=== PATIENT | female | born 1985 | race Caucasian/White ===

== ENCOUNTER 2021-07-02 12:06 | Emergency (ER) | payer OTHER, SELFPAY ==
[2021-07-02 12:16] VITALS: BP 137/89; PULSE 88; RESP 18; TEMP 36.8; O2SAT 98; BMI 25.3
--- NOTE | 2021-07-02 12:24 | ED.ABDPAIN ---
HPI - Abdominal Pain General Chief Complaint: Abdominal Pain Stated Complaint: abd pain, covid + Time Seen by Provider: 07/02/21 12:08 History of Present Illness HPI narrative: Patient presents to ED for menstrual cramps/lower abdominal pain. Patient denies any nausea, vomiting, flank pain, fever, or chills. Patient denies any recent trauma to the abdomen. Patient is also COVID positive. Patient denies any chest pain or shortness of breath. MD elicited complaint: abdominal pain Related Data Previous Rx's Medication Instructions Recorded naproxen 500 mg tablet 500 mg PO BID PRN #20 tab 07/02/21 nitrofurantoin 100 mg PO Q12H 7 Days #14 cap 07/02/21 monohydrate/macrocrystals 100 mg capsule (Macrobid) Allergies Allergy/AdvReac Type Severity Reaction Status Date / Time No Known Allergies Allergy Unverified 07/02/20 16:57 Review of Systems Review of Systems Yes all other systems are reviewed and are negative Constitutional: Reports as per HPI and Reports no additional constitutional complaints Eyes: Reports as per HPI and Reports no additional eye complaints Reports system reviewed and no additional complaints, except as documented and Reports as per HPI Cardiovascular: Reports as per HPI and Reports no additional cardiovascular complaints Respiratory: Reports as per HPI and Reports no additional respiratory complaints Gastrointestinal: Reports as per HPI, Reports no additional gastrointestinal complaints and Reports GI cramping Genitourinary: Reports no additional female genitourinary complaints and Reports as per HPI Comments: Vaginal bleeding menstrual cramps Musculoskeletal: Reports no additional musculoskeletal complaints and Reports as per HPI Reports system reviewed and no additional complaints, except as documented and Reports as per HPI Psychiatric: Reports no additional psychiatric complaints and Reports as per HPI Physical Exam Vital Signs: Vital Signs: Last Vital Signs Temp 98.3 F 07/02/21 14:59 Pulse 72 07/02/21 14:59 Resp 16 07/02/21 14:59 BP 116/74 07/02/21 14:59 Pulse Ox 99 07/02/21 14:59 Body Mass Index 25.3 Const: General: cooperative, healthy appearing, comfortable, no acute distress, well developed, alert, awake and Physically active Orientation/consciousness: patient oriented x3 HENMT: Head: Yes normal to inspection, Yes No palpable skull fracture present, Yes normocephalic, Yes atraumatic and No abrasion Eyes: General: appearance normal, both eyes and all related structures Neck: Neck: Yes normal visual inspection, Yes full ROM, Yes no lymphadenopathy, Yes no meningeal signs, Yes trachea midline, Yes supple and No tender Chest: Chest palpation & inspection: normal inspection of the chest and normal palpation of entire chest wall Resp: Effort & Inspection: normal respiratory effort and able to speak in complete sentences Cardio: Jugular venous distension: no JVD Heart sounds: S1 normal heart sound present and S2 normal heart sound present GI: Inspection: Yes normal to inspection and No abdominal wall ecchymosis Palpation (GI): Soft to palpation, not firm, Tenderness to palpation present (GI) suprapubicly, no guarding and not rigid : General: No CVA tenderness and Yes no CVA tenderness Back/Spine/Pelvis: Back: no CVA tenderness, No CVA tenderness and No back tenderness Skin: General skin exam: no rashes or lesions noted and elasticity normal Neuro: General: patient oriented x3, gait normal, no meningeal signs and CN's II-XI intact bilaterally Cranial nerves: Yes CN's II-XII intact bilaterally Extrem: General: Yes normal to inspection and Yes full ROM Psych: Appearance: grossly normal, well kempt and not disheveled Course Course Course Narrative: Patient have urine ordered to rule out infection and . Patient likely will be ordered. Reevaluation(s) Reevaluation #1: Patient has negative . UA shows UTI. Patient given Motrin for pain. Patient will be discharged with antibiotics and pain meds Time: 15:06 MDM - Abdominal Pain MDM Narrative Medical decision making narrative: UTI. Menstrual cramps Lab Data Result diagrams: 07/02/21 13:47 07/02/21 13:47 Labs: Lab Results 07/02/21 07/02/21 07/02/21 Range/Units 13:11 13:11 13:47 WBC 11.4 H (4.8-10.8) X10*3/uL RBC 4.75 (4.20-5.50) X10*6/uL Hgb 12.1 (12.0-16.0) g/dl Hct 38.4 (37-47) % MCV 80.8 (80-98) fL MCH 25.5 L (27.0-33.0) pg MCHC 31.5 (31.0-35.0) g/dl RDW 16.1 H (11.0-16.0) % Plt Count 261 (160-400) X10*3/uL MPV 11.1 (9.4-12.3) fL Immature Gran % (Auto) 0.4 (0.0-0.4) % Neut % (Auto) 82.4 H (45-73) % Lymph % (Auto) 12.2 L (20-40) % [place] % (Auto) 4.3 (2-11) % Eos % (Auto) 0.4 (0-4) % Baso % (Auto) 0.3 (0-2) % Lymph # (Auto) 1.4 (1.2-4.9) X10*3/uL [place] # (Auto) 0.5 (0.1-1.2) X10*3/uL Eos # (Auto) 0.0 (0.0-0.4) X10*3/uL Baso # (Auto) 0.0 (0.0-0.2) X10*3/uL Abs Immat Gran (auto) 0.04 H (0.00-0.03) X10*3/uL Absolute Neuts (auto) 9.4 H (2.0-8.3) X10*3/uL Absolute Nucleated RBC 0.000 (0.0-0.012) X10*3/uL Nucleated RBC % (auto) 0.0 (0.0-0.2) /100WBC PT (9.9-13.0) SEC INR (0.9-1.1) APTT (24.1-38.0) SEC Sodium (135-145) mmol/L Potassium (3.3-5.1) mmol/L Chloride (96-108) mmol/L Carbon Dioxide (22-29) mmol/L Anion Gap (12-20) BUN (9-16) mg/dL Creatinine (0.5-1.4) mg/dL Estim Creat Clear Calc Estimated GFR Random Glucose (60-115) mg/dL Calcium (8.4-10.2) mg/dL Total Bilirubin (0.0-1.0) mg/dL AST (5-31) U/L ALT (0-31) U/L Alkaline Phosphatase (39-117) U/L Total Protein (6.5-8.0) g/dL Albumin (3.5-5.0) g/dL Urine Color RED Urine Appearance CLOUDY Urine pH 5.0 (5.0-8.0) Ur Specific [place] >= 1.030 H (1.005-1.025) Urine Protein 2+ H (NEG-TRACE) MG/DL Urine Glucose (UA) NEG (NEG) MG/DL Urine Ketones NEG (NEG) MG/DL Urine Blood 3+ H (NEG) Urine Nitrite POS H (NEG) Ur Leukocyte Esterase TRACE H (NEG) Urine RBC 76-150 H (0) /HPF Urine WBC 0-2 (0-4) /HPF Ur Squamous Epith Cells TRACE /LPF Urine Bacteria TRACE /LPF Urine Test NEGATIVE (NEGATIVE) 07/02/21 07/02/21 Range/Units 13:47 13:47 WBC (4.8-10.8) X10*3/uL RBC (4.20-5.50) X10*6/uL Hgb (12.0-16.0) g/dl Hct (37-47) % MCV (80-98) fL MCH (27.0-33.0) pg MCHC (31.0-35.0) g/dl RDW (11.0-16.0) % Plt Count (160-400) X10*3/uL MPV (9.4-12.3) fL Immature Gran % (Auto) (0.0-0.4) % Neut % (Auto) (45-73) % Lymph % (Auto) (20-40) % [place] % (Auto) (2-11) % Eos % (Auto) (0-4) % Baso % (Auto) (0-2) % Lymph # (Auto) (1.2-4.9) X10*3/uL [place] # (Auto) (0.1-1.2) X10*3/uL Eos # (Auto) (0.0-0.4) X10*3/uL Baso # (Auto) (0.0-0.2) X10*3/uL Abs Immat Gran (auto) (0.00-0.03) X10*3/uL Absolute Neuts (auto) (2.0-8.3) X10*3/uL Absolute Nucleated RBC (0.0-0.012) X10*3/uL Nucleated RBC % (auto) (0.0-0.2) /100WBC PT 13.0 (9.9-13.0) SEC INR 1.1 (0.9-1.1) APTT 18.3 L (24.1-38.0) SEC Sodium 137 (135-145) mmol/L Potassium 4.5 (3.3-5.1) mmol/L Chloride 106 (96-108) mmol/L Carbon Dioxide 24 (22-29) mmol/L Anion Gap 12 (12-20) BUN 8 L (9-16) mg/dL Creatinine 0.83 (0.5-1.4) mg/dL Estim Creat Clear Calc 79.8 Estimated GFR > 60 Random Glucose 85 (60-115) mg/dL Calcium 9.1 (8.4-10.2) mg/dL Total Bilirubin 0.5 (0.0-1.0) mg/dL AST 15 (5-31) U/L ALT 11 (0-31) U/L Alkaline Phosphatase 41 (39-117) U/L Total Protein 6.9 (6.5-8.0) g/dL Albumin 4.0 (3.5-5.0) g/dL Urine Color Urine Appearance Urine pH (5.0-8.0) Ur Specific [place] (1.005-1.025) Urine Protein (NEG-TRACE) MG/DL Urine Glucose (UA) (NEG) MG/DL Urine Ketones (NEG) MG/DL Urine Blood (NEG) Urine Nitrite (NEG) Ur Leukocyte Esterase (NEG) Urine RBC (0) /HPF Urine WBC (0-4) /HPF Ur Squamous Epith Cells /LPF Urine Bacteria /LPF Urine Test (NEGATIVE) Discharge Plan Discharge Clinical Impression: UTI (urinary tract infection), Menstrual cramps Patient Disposition: Home, Self-Care Instructions: Dysmenorrhea (ED), Urinary Tract Infection in Women (ED) Additional Instructions: Return to the ED for any worsening abdominal pain, flank pain, fever, chills, nausea, vomiting, any other concerning symptoms. Please continue COVID quarantine. He will be discharged with antibiotics for urinary tract infection. Please follow-up with primary care provider. Prescriptions: New naproxen 500 mg tablet 500 mg PO BID PRN (Reason: pain) Qty: 20 RF: 0 nitrofurantoin monohyd/m-cryst [Macrobid] 100 mg capsule 100 mg PO Q12H 7 Days Qty: 14 RF: 0 Interventions: ED Discharge Assessment Last Done: 07/02/21 18:00 Discharge Date/Time: 07/02/21 18:00 Print Language: Kiswahili COUNTS INCLUDE 234 BEDS AT THE [facility] Past Medical History Medical History (Updated 07/02/21 @ 15:11 by REYES Ochoa) COVID-19 Social History Social History Advance Directives: No Patient : No
[2021-07-02 13:26] LABS: Appearance Urine CLOUDY; Color Urine RED; Glucose Urine UA NEG (NEG); Leukocyte Esterase Urine TRACE (NEG); Nitrite Urine POS (NEG); Specific Gravity - Urine >= 1.030 (1.005-1.025); UACC Culture Trigger YES; Urine Blood 3+ (NEG); Urine Ketones NEG (NEG); Urine Protein 2+ MG/DL (NEG-TRACE)
[2021-07-02 13:30] LABS: UPreg QC Valid YES; Urine Pregnancy NEGATIVE (NEGATIVE)
[2021-07-02 13:37] LABS: Bacteria Urine TRACE /LPF; Squamous Epithelial Cell Urine TRACE /LPF; WBC Urine 0-2 /HPF (0-4)
[2021-07-02 13:56] LABS: MANUAL DIFF FLAG NO
[2021-07-02 14:00] LABS: Basophils Percent Auto 0.3 % (0-2); Eosinophils Percent Auto 0.4 % (0-4); Hematocrit 38.4 % (37-47); Hemoglobin 12.1 g/dl (12.0-16.0); Imm Gran Abs Auto 0.04 X10*3/uL (0.00-0.03); Imm Gran Pct Auto 0.4 % (0.0-0.4); Lymphocytes Absolute Auto 1.4 X10*3/uL (1.2-4.9); Lymphocytes Percent Auto 12.2 % (20-40); Mean Corpuscular HGB Conc 31.5 g/dl (31.0-35.0); Mean Corpuscular Hemoglobin 25.5 pg (27.0-33.0); Mean Corpuscular Volume 80.8 fL (80-98); Mean Platelet Volume 11.1 fL (9.4-12.3); Monocytes Absolute Auto 0.5 X10*3/uL (0.1-1.2); Monocytes Percent Auto 4.3 % (2-11); Neutrophils Absolute Auto 9.4 X10*3/uL (2.0-8.3); Neutrophils Percent Auto 82.4 % (45-73); Platelet Count 261 X10*3/uL (160-400); Red Blood Count 4.75 X10*6/uL (4.20-5.50); Red Cell Distribution Width 16.1 % (11.0-16.0); White Blood Count 11.4 X10*3/uL (4.8-10.8)
[2021-07-02 14:20] LABS: Alanine Aminotransferase 11 U/L (0-31); Alkaline Phosphatase 41 U/L (39-117); Anion Gap 12 (12-20); Aspartate Amino Transferase 15 U/L (5-31); Bilirubin Total 0.5 mg/dL (0.0-1.0); Blood Urea Nitrogen 8 mg/dL (9-16); Calcium 9.1 mg/dL (8.4-10.2); Carbon Dioxide 24 mmol/L (22-29); Chloride 106 mmol/L (96-108); Creatinine Clr Calc Pharmacy 79.8; Estimated Glomerular Filt Rate > 60; Glucose Random 85 mg/dL (60-115); Potassium 4.5 mmol/L (3.3-5.1); Sodium 137 mmol/L (135-145); Total Protein 6.9 g/dL (6.5-8.0)
[2021-07-02 14:41] LABS: INTERNATIONAL NORM RATIO 1.1 (0.9-1.1)
[2021-07-02 14:48] LABS: Partial Thromboplastin Time 18.3 SEC (24.1-38.0)
[2021-07-02] MEDS: Ibuprofen 800 MG TABLET PO (14:58)
[2021-07-02 14:59] VITALS: BP 116/74; PULSE 72; RESP 16; TEMP 36.8; O2SAT 99
== END 2021-07-02 18:00 | disposition home or self-care (01) ==
PROVIDERS: Physician Assistant; Emergency Provider Emergency Medicine
DX: N39.0 Urinary tract infection, site not specified (principal); R25.2 Cramp and spasm; Z79.899 Other long term (current) drug therapy
CPT/HCPCS: 36415; 80053; 81001; 81025; 85025; 85610; 85730; 87086; 99283; 99284

== ENCOUNTER 2023-07-15 21:17 | Emergency (ER) | payer MEDICAID, SELFPAY ==
--- NOTE | 2023-07-15 | ECG_ITS ---
Test Reason : VOMITING Blood Pressure : / mmHG Vent. Rate : 119 BPM Atrial Rate : 119 BPM P-R Int : 122 ms QRS Dur : 074 ms QT Int : 306 ms P-R-T Axes : 054 057 -13 degrees QTc Int : 430 ms Sinus tachycardia T wave abnormality, consider inferior ischemia Abnormal ECG When compared with ECG of 24-OCT-2009 01:58, T wave inversion more evident in Inferior leads Heart rate has increased Referred By: Generic ED Physician Electronically Signed By:SAULO HERNANDEZ
[2023-07-15 21:31] VITALS: BP 115/83; PULSE 113; RESP 17; TEMP 37.8; O2SAT 96; BMI 28.4
[2023-07-15 22:45] LABS: COVID-19 Test Negative (Negative); IDNOW Serial# BCCEAD1C
[2023-07-15 22:46] LABS: IDNOW Serial# 08D9AD1C; Influenza A Positive (Negative); Influenza B2 Negative (Negative)
[2023-07-15] MEDS: Ibuprofen 400 MG TABLET PO (23:41)
[2023-07-15] MEDS: Ondansetron ODT 4 MG TAB.RAPDIS TRANSLINGU (23:42)
[2023-07-15] MEDS: Acetaminophen 325 MG TABLET 975 MG PO (23:42)
[2023-07-15 23:43] VITALS: BP 122/82; PULSE 104; RESP 18; TEMP 38.3; O2SAT 97
--- NOTE | 2023-07-16 00:42 | ED_ITS ---
HPI - General Adult General Chief complaint: General Medical Stated complaint: vomiting,headache Time Seen by Provider: 07/15/23 22:30 Source: patient Mode of arrival: ambulatory History of Present Illness HPI narrative: 38-year-old female without significant past medical history is had symptoms since of sore throat, chills, body aches and then today began having difficulty keeping a food and water down. She reports a possible sick contact in her co-worker on Monday of last week. Related Data Previous Rx's Medication Instructions Recorded naproxen 500 mg tablet 500 mg PO BID PRN pain #20 tabs 07/02/21 nitrofurantoin 100 mg PO Q12H 7 days #14 caps 07/02/21 monohydrate/macrocrystals 100 mg capsule (Macrobid) ondansetron 4 mg disintegrating 4 mg PO Q8H PRN nausea and 07/16/23 tablet vomiting #10 tabs Allergies Allergy/AdvReac Type Severity Reaction Status Date / Time No Known Allergies Allergy Unverified 07/02/20 16:57 Review of Systems Review of Systems: Pertinent positives and negatives as stated in HPI [facility] Past Medical History Source: nursing notes reviewed Medical History COVID-19 Social History Social History Smoked in Last 30 Days: No Use of substances other than those prescribed or required for medical reasons: No Advance Directives: No Advance Directives Information Provided: Yes Patient : No Physical Exam ED Vital Signs: Vital Signs - 24 hr 07/15/23 21:31 07/15/23 23:43 Temperature 100.1 F 101 F H Pulse Rate 113 H 104 H Respiratory Rate 17 18 Blood Pressure 115/83 122/82 Pulse Oximetry 96 97 Oxygen Delivery Method Room Air Room Air BMI result Body Mass Index 28.4 VITAL SIGNS: Reviewed. GENERAL: Well developed, well nourished, in no acute distress. HEAD: Normocephalic/atraumatic EYES: PERRLA, EOMI EARS: Ext canals without abnormality, TMs non-bulging and non-erythematous NOSE: Nares patent bilateral OROPHARYNX: no oral lesions noted, posterior pharynx clear and non-erythematous without noted tonsillar enlargement/erythema/exudates NECK: Supple, no adenopathy LUNGS: Normal breath sounds. No adventitious sounds or accessory muscle use. SpO2<97> CARDIOVASCULAR: Regular rate and rhythm without noted murmurs ABDOMEN: Soft, non-tender, non-distended with bowel sounds. MUSCULOSKELETAL: No tenderness, deformities, or effusions noted on gross inspection. EXTREMITIES: No cyanosis, clubbing or edema. SKIN: Inspection of the skin reveals no rashes, diaphoresis, tactile fever NEUROLOGIC: Alert and oriented x 4. Strength and sensation to light touch were grossly intact x 4. Medications Administered Discontinued Medications Generic Name Dose Route Start Last Admin Trade Name Freq PRN Reason Stop Dose Admin Acetaminophen 975 mg 07/15/23 23:27 07/15/23 23:42 Acetaminophen 325 Mg Tablet PO 07/15/23 23:28 975 mg ONCE ONE Administration Sodium Chloride 1,000 mls @ 999 mls/hr 07/16/23 00:45 07/16/23 01:58 Ns IV 07/16/23 01:45 Infused .Q1H1M LONA Infusion Ibuprofen 400 mg 07/15/23 23:27 07/15/23 23:41 Ibuprofen 400 Mg Tablet PO 07/15/23 23:28 400 mg ONCE ONE Administration Ondansetron HCl 4 mg 07/15/23 23:27 07/15/23 23:42 Ondansetron Odt 4 Mg Tab.Rapdis TRANSLINGU 07/15/23 23:28 4 mg ONCE ONE Administration Medical Decision Making Medical Decision Making [facility] Narrative: 38-year-old female with history and clinical presentation, DDX: Viral syndrome, COVID, influenza, no clinical findings to suggest strep pharyngitis. I reviewed all investigations and viral testing is positive for influenza a, patient is outside the window to initiate Tamiflu. Patient was provided with combination antipyretics as well as antinausea medication. Although she was able tolerate a small amount of oral intake she will be given 1 L of IV fluids, re-evaluated and discharged. Patient is feeling much better after IV fluids and able to tolerate oral intake. She will be discharged on antinausea medication. Differential Diagnosis Differential Diagnoses: The differential diagnosis associated with the presentation includes Please see the discussion above Admission/Observation Consideration of admission/observation: Escalation of care including admission/observation considered Please see the discussion above Lab Data [facility] Lab Attestation statement: I reviewed the patient's lab results. Please see the discussion above Labs: Lab Results 07/15/23 07/15/23 Range/Units 22:25 22:26 COVID-19 (KEILY) Negative (Negative) COVID-19 Clin Com See Note Influenza Type A (MARKEL) Positive A (Negative) Influenza Type B (MARKEL) Negative (Negative) Influenza A & B Note See Note Discharge Plan Discharge Clinical Impression: Viral syndrome, Influenza A Patient Disposition: Home, Self-Care Instructions: Influenza (ED), Viral Syndrome (ED) Additional Instructions: 1. Use [id number] Tylenol/ibuprofen as needed for body aches, temperatures greater than 100.4. Continues stay well hydrated. 2. You have been given a prescription to control the nausea. Return to the ER for any worsening symptoms. Prescriptions: New ondansetron 4 mg tablet,disintegrating 4 mg PO Q8H PRN (Reason: nausea and vomiting) Qty: 10 0RF No Action naproxen 500 mg tablet 500 mg PO BID PRN (Reason: pain) Qty: 20 0RF nitrofurantoin monohyd/m-cryst [Macrobid] 100 mg capsule 100 mg PO Q12H 7 Days Qty: 14 0RF Rx Instructions: must administer with a meal/food Stand Alone Forms: Work/School Release
[2023-07-16] MEDS: 0.9 % Sodium Chloride 1,000 ML 999 ML IV (00:55)
--- NOTE | 2023-07-16 02:15 | PC.NURSE ---
pt tolerated po fluids. Dr. Cline
[2023-07-16 02:16] VITALS: TEMP 36.9
== END 2023-07-16 02:23 | disposition home or self-care (01) ==
PROVIDERS: Emergency Provider Student in an Organized Health Care Education/Training Program
DX: J10.1 Influenza due to other identified influenza virus with other respiratory manifestations (principal); Z20.822 Contact with and (suspected) exposure to COVID-19
CPT/HCPCS: 87502; 87635; 93005; 96360; 99284; 99285

== ENCOUNTER 2024-08-15 10:50 | Outpatient (AMB) | payer BC, SELFPAY ==
--- NOTE | 2024-08-14 18:01 | MHC.PC.OV ---
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 Intake Note: new patient to establish care Allergies No Known Allergies Allergy (Verified 08/15/24 11:16) Medication List - Last Reconciled 08/15/24 by KEMAR Jiang No Known Home Meds Tobacco use date assessed: 08/15/24 Dental Screening Dental Screen Date: 08/15/24 Did you have a dental visit in the last 12 months?: No Did you have a dental problem in the last 6 months where you did not have access to dental care?: No Was dental information given to patient?: Patient has dentist HPI HPI Comments History of Present Illness Details 39 y/o F with obesity Surgical hx: c section x 2, tubal ligation 2021 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 Has 3 children, 2 dtrs and 1 son . Health Maintenance Tdap 2021 @ [facility] Flu declined Pap Specialists: [facility] Here today to [facility]. No records, previous PCP at [facility]. Last visit years ago. Having palpitations that come and go, feels hard to breathe for a short time and then breathing and heart rate go back to normal. This started a few months ago. Last time if happened was while driving here. Denies any stimulant use. + caffeine coffee and coke zero. Denies energy drinks, anxiety. Dad has some cardiac condition, unsure. Chronic constipation. Was using senna but this did not help. Then tried miralax but this did not work. Has never seen GI. Right ear feels plugged, described as feeling like she is underwater. Exam: Awake alert NAD Cerumen bilat EAC, s/p lavage TM intact and clear Thyroid nonpalp RRR LS CTAB Abd soft, nontender, normoactive BS x 4 Mood and affect appropriate Plan Successful ear lavage today bilateral EKG performed and within normal limits Check routine screening labs today along with some labs to see if there is any cause for the palpitations that she was experiencing. If labs within normal limits could consider a Holter monitor. Correlate labs with chronic constipation. Medication recommendations to be made at next office visit Return to office in 2 weeks to follow up on lab results This note is constructed using voice recognition software. While every effort has been made to ensure accuracy in bike technician, still errors may have been included Sometimes, these errors may affect the content or meaning of the given sentence . This note is constructed using voice recognition software. While every effort has been made to ensure accuracy in bike technician, still errors may have been included Sometimes, these errors may affect the content or meaning of the given sentence .45 PFSH Medical History (Updated 08/15/24 @ 11:29 by Sarah Rocha, [facility]) No pertinent past medical history COVID-19 Surgical History (Updated 08/15/24 @ 11:04 by Farhana South MA) H/O section Family History (Updated 08/15/24 @ 11:04 by Farhana South MA) Mother High cholesterol Diabetes Social History (Updated 08/15/24 @ 10:59 by Farhana South MA) Household Members: Spouse and Children Both parents involved: No Caregiver staying overnight: No Housing: Apartment Are you a primary respiratory care instructor to a significant other at home: Yes Do you presently have visiting nurse or other home services: No 75 years or older and lives alone: No Alcohol intake: current Alcohol intake frequency: a few times a month Patient Tobacco Use Status: Never used Tobacco e-Cigarette/Vaping Use: Never Used Second Hand Smoke Exposure: No service: No Current occupational status: employed 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 1. Little interest or pleasure in doing things: not at all 2. Feeling down, depressed, or hopeless: not at all 3. Trouble falling or staying asleep, or sleeping too much: not at all 4. Feeling tired or having little energy: not at all 5. Poor appetite or overeating: not at all 6. Feeling bad about yourself - or that you are a failure or have let yourself or your family down: not at all 7. Trouble concentrating on things, such as reading the newspaper or watching television: not at all 8. Moving or speaking so slowly that other people could have noticed. Or the opposite - being so fidgety or restless that you have been moving around a lot more than usual: not at all 9. Thoughts that you would be better off or of hurting yourself in some way: not at all Total score: 0 Depression Screening Interpretation: Negative Depression Screening Done: Yes 71052 - PHQ-9 Billing: Yes Source: Developed by Drs. Colin Perera, Peace Oleary, Major Farnsworth and colleagues, with an educational jean from [employer]. Thrive Questionnaire Date Thrive assessed: 08/15/24 I am a: Patient What is your living situation today?: I have a steady place to live Within the past 12 months, did the food you bought not last and you didn't have the money to get more?: Never true Within the past 12 months, did you worry whether your food would run out before you got money to buy more?: Never true Do you have trouble paying for medicines?: No Do you have trouble getting transportation to medical appointments?: No Do you have trouble paying your heating and electricity bill?: No Do you have trouble taking care of your child, family member or friend?: No Do you have trouble with day-to-day activities such as bathing, preparing meals, shopping, managing finances, etc.?: No Are you currently unemployed and looking for a job?: No Are you interested in more education?: No Please select the resources that you would like help with: None Currently or been in a relationship where the following occur: No concerns reported THRIVE Score: 0 AUDIT C Alcohol Use Questionnaire (AUDIT-C) 1. How often do you have a drink containing alcohol?: 2-4 times a month 2. How many drinks containing alcohol do you have on a typical day when you are drinking?: 1 or 2 3. How often do you have six or more drinks on one occasion?: Never Total Score: 2 Score Reviewed/Action Taken: Yes SWEAT-7 AMB Questionnaire SWETA-7 Date SWETA - 7 assessed: 08/15/24 Feeling nervous, anxious, or on edge: 0 = Not at all Not being able to stop or control worryin = Not at all Worrying too much about different things: 0 = Not at all Trouble relaxin = Not at all Being so restless that it is hard to sit still: 0 = Not at all Becoming easily annoyed or irritable: 0 = Not at all Feeling afraid as if something awful might happen: 0 = Not at all Total SWETA-7 score (0-4 normal; 5-9 mild; 10-14 moderate; 15-21 severe): 0 Source: Developed by Drs. Colin Perera, Peace Oleary, Major Farnsworth and colleagues, with an educational jean from [employer]. SWETA-7 Assessment Billing SWETA-7 Assessment Tool: SWETA-7 Assessment 68452 Physical exam (Primary Care) Vital Signs: Last Vital Signs Pulse 80 08/15/24 10:56 Resp 12 08/15/24 10:56 BP 120/70 08/15/24 10:56 Pulse Ox 99 08/15/24 10:56 Oxygen Delivery Method Room Air 08/15/24 10:56 BMI result Body Mass Index 30.6 BMI Assessment/Plan discussion: High BMI High, discussed plan: lifestyle Tobacco/Smoking Status: Tobacco use Status Tobacco use date assessed 08/15/24 08/15/24 11:00 Patient Tobacco Use Status Never used Tobacco 08/15/24 11:00 e-Cigarette/Vaping Use Never Used 08/15/24 11:00 PHQ-9: PHQ-9 Score PHQ-9: Total score 0 08/15/24 11:24 Depression Screening Interpretation: Negative Thrive Assessment: Date of Thrive Assessment Date Thrive assessed 08/15/24 08/15/24 11:00 Currently or been in a relationship where the following occur: No concerns reported Office Procedures EKG 56161-Svksgpieaeoglsoeo, Complete Cerumen Removal From which ear canal was the cerumen removed: bilateral Removal: irrigation Notes: patient tolerated procedure well, no complications and ear canal clear 20242-Aso Irrigation/Lavage Coding Level of Care Code New Pt Level 4 (35942) Complex EM visit Add On G2211 Diagnoses Palpitations R00.2 Chronic constipation K59.09 BMI 30.0-30.9,adult Z68.30 Obesity, Class I, BMI 30.0-34.9 (see actual BMI) E66.811 Impacted cerumen of both ears H61.23 CPT Codes EKG - CPT: 63187-Nrfisztipsjjymhxv, Complete ([id number]) Office Procedure - CPT: 16201-Zxt Irrigation/Lavage ([id number]) Additional Codes SWETA-7 Assessment Billing - SWETA-7 Assessment Tool: SWETA-7 Assessment 52456 ([id number]) Assessment & Plan Assessment & Plan (1) Palpitations: Code(s): R00.2 - Palpitations Category: Medical Plan: . (2) Chronic constipation: Code(s): K59.09 - Other constipation Category: Medical Plan: . (3) BMI 30.0-30.9,adult: Code(s): Z68.30 - Body mass index [BMI] 30.0-30.9, adult Category: Medical Plan: . (4) Obesity, Class I, BMI 30.0-34.9 (see actual BMI): Code(s): E66.811 - Obesity, class 1 Category: Medical Plan: . (5) Impacted cerumen of both ears: Code(s): H61.23 - Impacted cerumen, bilateral Plan: . Plan . Orders: Orders Lipid Panel Today K59.09 - Other constipation, R00.2 - Palpitations Microalbumin, Random (w Creat) Today K59.09 - Other constipation, R00.2 - Palpitations Vitamin B12 and Folate Today K59.09 - Other constipation, R00.2 - Palpitations Phosphorus Today K59.09 - Other constipation, R00.2 - Palpitations Complete Blood Count no Diff Today K59.09 - Other constipation, R00.2 - Palpitations Comprehensive Met. Panel Today K59.09 - Other constipation, R00.2 - Palpitations Hemoglobin A1c Today K59.09 - Other constipation, R00.2 - Palpitations TSH reflex Free T4 Today K59.09 - Other constipation, R00.2 - Palpitations Magnesium Today K59.09 - Other constipation, R00.2 - Palpitations AMB EKG-In Office Today R00.2 - Palpitations, Z13.6 - Encounter for screening for cardiovascular disorders Medications: Discontinued naproxen Discontinued Reason: Patient no longer taking 500 mg PO BID PRN 20 tabs 0RF pain nitrofurantoin monohyd/m-cryst 100 mg (Macrobid) must administer with a meal/food Discontinued Reason: Patient no longer taking 100 mg PO Q12H 7 days 14 caps 0RF ondansetron Discontinued Reason: Patient no longer taking 4 mg PO Q8H PRN 10 tabs 0RF nausea and vomiting Patient Instructions: Walk-In Care (Urgent Care): We Make it Easy Walk-in for urgent medical issues such as: ? Seasonal Allergies ? Insect Bites ? Cough ? Diarrhea ? Acute Asthma Attacks ? Back, Knee or Joint Pain ? Ear Infection ? Fever without a Rash ? Headaches ? Nausea ? Rena Lara Eye, Rash or Skin Irritation ? Sore Throat ? Sports Physicals ? Vomiting Most insurances are accepted. Patients do not need to be part of the [facility] to seek care at the walk-in clinic. Locations [address] [facility] , [place] [address] ? [phone] [facility] Walk-In Care in [place] provides services to ages 18 and over. Open Monday-Monday: 8 a.m. to 5 p.m. and Monday: 9 a.m. to 3 p.m.* *Hours may vary due to staffing availability. To confirm Walk-In Care hours in [place], please call [phone]. [address] [place] [address] ? [phone] [facility] Walk-In Care in [place] provides services to ages 12 and over. Open Monday-Monday: 8 a.m. to 5 p.m. Hours may vary due to staffing availability. To confirm Walk-In Care hours in [place], please call [phone]. LABORATORY SERVICES: [facility] ? Primary Location [address] [place] [address] Monday through Monday 6:00 AM ? 5:00 PM Monday 7:00 AM ? 11:00 AM* [phone] The [facility] is centrally located near the front entrance of the [facility] for easy outpatient access. Convenient parking is provided for outpatients. *Hours may vary due to staffing availability. To confirm Laboratory hours for any location, please call [phone]. Offsite Location For your convenience, we offer offsite laboratory draw stations at the following locations: [address] [place] [address] ? [facility] [address], [address] Monday through Monday 7:30 AM ? 1:00 PM* [phone] *Hours may vary due to staffing availability. To confirm Laboratory hours for any location, please call [phone]. [place] [address], [place] Monday through Monday 6:00 AM ? 3:30 PM* Monday 6:30 AM ? 3 PM* [phone] *Hours may vary due to staffing availability. To confirm Laboratory hours for any location, please call [phone]. [address] [facility] Monday through Monday 7:30 AM ? 4:00 PM* [phone] *Hours may vary due to staffing availability. To confirm Laboratory hours for any location, please call [phone]. [address] [facility] Monday through 9:00 AM ? 4:00 PM* *Hours may vary due to staffing availability. To confirm Laboratory hours for any location, please call [phone]. Appointments are not necessary. Walk-ins are welcome. Like all the departments throughout the [facility], our Lab undergoes frequent reviews to ensure the quality and accuracy of test results, and our staff takes special pride in its status as a nationally accredited facility. Patient Portal: ONE PATIENT. ONE RECORD. BETTER CARE. [facility] has a fully integrated, cutting-edge mobile electronic health information system that has revolutionized the way we care for our patients and manage our organization. This system improves communication and coordination enabling us to provide safe, higher-quality care, and an overall positive experience for staff and patients. Our first priority, as always, is to deliver the highest quality care possible. The system is running in the background supporting that priority. This portal is for all [facility] and [facility] services and practices. If you are experiencing any technical difficulties with enrolling or logging into the Patient Portal please complete the [facility] Patient Portal Technical Support Form. [facility] now offers a new secure on-line interactive tool for patients to review their health information ? ?Patient Portal. This interactive web portal will enable patients and their families to take an active role in their care by providing easy, secure access to their health information via the internet. The Patient Portal provides patients with instant access to their health information, including laboratory results, medications, allergies, demographic information, visit history, and more. In addition to managing their own care, parents and health care proxies with authorized consent will appreciate the ability to access the records of those individuals for whom they provide care. Please note: if you wish to gain access (Proxy) to another patient?s portal, you will be required to come to the Medical Records Department in person at [facility]. Both the patient giving proxy access and the proxy will need to provide photo identification and complete the appropriate authorization. The Patient Portal also allows track their appointments online. The [facility] Patient Portal also saves patients time by allowing them to submit updates to their demographic and contact information prior to their visits. Portal email notifications will also alert patients to any new activity on their portal, such as test results and new appointments. In order to initially enroll in the [facility] Patient Portal, you will need to enter some required information including the following: your [facility] Medical Record number your personal home email address name date of Please note: In order to enroll in the [facility] Patient Portal, we need to have your email address on file in your electronic medical record. ?The email address needs to be specific for one person (yourself) in order for your Portal enrollment to be successful. ?You can update your email address in person with our Registration staff when you are registering for a hospital visit. ?Otherwise, you will need to come to the Health Information Management (Medical Records) Department at [facility]. ?We are open from Monday ? Monday from 7:30 a.m. ? 4:30 p.m. ?You will be required to present a photo id. Once you have successfully enrolled in the Patient Portal, you will receive a one-time user id and password for the Portal, sent to your email address. ?This will allow you to log into the Patient Portal within 99 hrs and reset your own logon id and password, and define personal security questions. ?Once your permanent login and password have been set, you can log into the [facility] Patient Portal at any time via the blue button above or from the Portal Logon button on any page of the [facility] website. [facility] and [facility] encourage all of our patients to enroll in Patient Portal as it presents a valuable opportunity for patients and their families to actively participate in their care and stay healthy Welcome to [facility]. ?We look forward to working with you.
[2024-08-15 10:56] VITALS: BP 120/70; PULSE 80; RESP 12; O2SAT 99; BMI 30.6
== END 2024-08-15 12:12 | disposition home or self-care (01) ==
LOC: HO.HMCFM 10:51
PROVIDERS: PCP Nurse Practitioner Family; Visit Provider Nurse Practitioner Family
DX: R00.2 Palpitations (principal); K59.09 Other constipation; Z68.30 Body mass index [BMI] 30.0-30.9, adult; E66.811 Obesity, class 1; H61.23 Impacted cerumen, bilateral

== ENCOUNTER → 2024-08-15 10:50 | Outpatient (BNVA) | payer BC, SELFPAY | PROVIDERS: PCP Nurse Practitioner Family; Visit Provider Nurse Practitioner Family | DX: R00.2 Palpitations (principal); K59.09 Other constipation; E66.811 Obesity, class 1; Z68.30 Body mass index [BMI] 30.0-30.9, adult; H61.23 Impacted cerumen, bilateral | CPT/HCPCS: 69209; 93005; 96127 ==

== ENCOUNTER 2024-08-23 06:45 | Outpatient (REF) | payer BC, SELFPAY ==
[2024-08-23 07:38] LABS: Hematocrit 36.1 % (37.0-47.0); Hemoglobin 11.7 g/dl (12.0-16.0); Mean Corpuscular HGB Conc 32.4 g/dl (31.0-35.0); Mean Corpuscular Hemoglobin 27.3 pg (27.0-33.0); Mean Corpuscular Volume 84.1 fL (80.0-98.0); Mean Platelet Volume 10.9 fL (9.4-12.3); Platelet Count 247 X10*3/uL (160-400); Red Blood Count 4.29 X10*6/uL (4.20-5.50); Red Cell Distribution Width 15.1 % (11.0-16.0)
[2024-08-23 07:43] LABS: WBC ABN SCTR FOR CBC 1
[2024-08-23 07:50] LABS: Estimated Average Glucose 100 mg/dL; Hemoglobin A1C 100.7551 umol/L; Hemoglobin A1c % 5.1 % (<6.0); Total Hemoglobin (HGBA1C) 3119.3183 umol/L
[2024-08-23 08:04] LABS: Creatinine Urine 229.37 mg/dL; Microalbum/Creatinine Ratio Ur 6.5 ug/mg cr (<30)
[2024-08-23 08:10] LABS: White Blood Count 5.6 X10*3/uL (4.8-10.8)
[2024-08-23 08:15] LABS: Anion Gap 11 (12-20); Calcium 8.8 mg/dL (8.4-10.2); Chloride 112 mmol/L (96-108); Sodium 143 mmol/L (135-145)
[2024-08-23 08:19] LABS: Alanine Aminotransferase 13 U/L (0-31); Albumin Level 3.8 g/dL (3.5-5.0); Aspartate Amino Transferase 22 U/L (5-31); Bilirubin Total 0.3 mg/dL (0.0-1.0); Blood Urea Nitrogen 13 mg/dL (9-16); Carbon Dioxide 24 mmol/L (22-29); Cholesterol 127 mg/dL (<200); Estimated Glomerular Filt Rate > 60; Glucose Random 99 mg/dL (60-115); HDL Cholesterol 50 mg/dL (>40); LDL Cholesterol Calculated 68 mg/dL (<100); Phosphorus 2.8 mg/dL (2.7-4.5); Total Protein 6.6 g/dL (6.5-8.0); Triglycerides 49 mg/dL (<150)
[2024-08-23 08:36] LABS: Alkaline Phosphatase 45 U/L (39-117); TSH reflex Free T4 1.91 uIU/mL (0.32-4.0)
[2024-08-23 08:38] LABS: Folate 9.6 ng/mL (> or = 4.0); Vitamin B12 454 pg/mL (200-900)
== END 2024-08-23 06:46 | disposition home or self-care (01) ==
LOC: HO.LAB 06:45
PROVIDERS: PCP Nurse Practitioner Family; Visit Provider Nurse Practitioner Family
DX: R00.2 Palpitations (principal); K59.09 Other constipation; Z13.1 Encounter for screening for diabetes mellitus
CPT/HCPCS: 36415; 80053; 80061; 82043; 82570; 82607; 82746; 83036; 83735; 84100; 84443; 85027

== ENCOUNTER 2024-08-29 09:07 | Outpatient (AMB) | payer BC, SELFPAY ==
--- NOTE | 2024-08-29 09:08 | MHC.PC.OV ---
Vital Signs 08/29/24 09:12 Height 5 ft 1 in Weight 165 lb 4 oz BMI 31.2 BP 110/70 Blood Pressure Location Rt brachial Position Sitting Respiration 16 Pulse 89 Pulse Source Pulse Oximeter Temp 98.2 F Temp Source Oral Pulse Oximetry (%) 100 Oxygen Delivery Method Room Air Intake Visit Reasons: 2 weeks 30 min fu labs/palp/constipation Intake Note: patient here for 2 wks follow up on labs, palp, and constipation. Clerical Administrative Assistant Required: No Is last menstrual period known: Yes Last menstrual period: 08/13/24 Post menopausal: No Patient : No Allergies No Known Allergies Allergy (Verified 08/29/24 09:12) Medication List - Last Reconciled 08/29/24 by Sarah Rocha, MEHDI- multivitamin with iron 1 tab PO DAILY polyethylene glycol 3350 (Miralax) 17 grams PO DAILY Tobacco use date assessed: 08/29/24 Dental Screening Dental Screen Date: 08/29/24 Did you have a dental visit in the last 12 months?: No Did you have a dental problem in the last 6 months where you did not have access to dental care?: No Was dental information given to patient?: Patient has dentist HPI HPI Comments History of Present Illness Details 39 y/o F with obesity, chronic constipation, anemia, Surgical hx: c section x 2, tubal ligation 2021 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 Health Maintenance Tdap 2021 @ [facility] Flu declined Pap Specialists: MATERIALS [facility] PROCESSES MANAGER [facility] Here today to f/u on labs Labs from 08/23/2024 show mild anemia hemoglobin 11.7, hematocrit 36.1, normal electrolytes, normal renal function, hemoglobin A1c 5.1%, normal Mag, normal phos, normal liver enzymes, cholesterol profile is normal along with B12 and folate, normal TSH, normal urine microalbumin creatinine ratio Done to eval c/o palpitations that come and go, feels hard to breathe for a short time and then breathing and heart rate go back to normal. This started a few months ago. Last time if happened was while driving here. Denies any stimulant use. + caffeine coffee and coke zero. Denies energy drinks, anxiety. Dad has some cardiac condition, unsure. Chronic constipation. Was using senna but this did not help. Then tried miralax but this did not work. Has never seen GI. No changes in sx since I last saw her. Exam: Awake alert NAD Thyroid nonpalp RRR LS CTAB Abd soft, nontender, normoactive BS x 4 Mood and affect appropriate Plan Start multivitamin with iron, advised to take daily with food. If she develops any GI upset, advised to reduce to 3 times per week. Check Holter monitor to evaluate palpitations Start MiraLax to help with constipation. Titrate to effect. Hold for diarrhea. Return to the office in 6 weeks to follow up on the Holter monitor results along with constipation care plan. As always advised to follow up sooner if needed. This note is constructed using voice recognition software. While every effort has been made to ensure accuracy in plan examiner, still errors may have been included Sometimes, these errors may affect the content or meaning of the given sentence . Total time spent caring for the patient today was 22 minutes. This includes time spent before the visit reviewing the chart, time spent during the visit, and time spent after the visit on documentation [facility] Medical History (Updated 08/26/24 @ 08:21 by Sarah Rocha, [facility]) No pertinent past medical history COVID-19 Surgical History (Updated 08/15/24 @ 11:04 by Farhana South MA) H/O section Family History (Updated 08/15/24 @ 11:04 by Farhana South MA) Mother High cholesterol Diabetes Social History (Updated 08/15/24 @ 10:59 by Farhana South MA) Household Members: Spouse and Children Both parents involved: No Caregiver staying overnight: No Housing: Apartment Are you a primary career consultant to a significant other at home: Yes Do you presently have visiting nurse or other home services: No 75 years or older and lives alone: No Alcohol intake: current Alcohol intake frequency: a few times a month Patient Tobacco Use Status: Never used Tobacco e-Cigarette/Vaping Use: Never Used Second Hand Smoke Exposure: No Patient : No service: No Current occupational status: employed 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 [employer] Cognitive needs: No Hearing needs: No Vision needs: Yes (wear glasses) Female Reproductive History Menstrual Date of last menstrual period: 08/13/24 Questionnaire Thrive Questionnaire Date Thrive assessed: 08/08/24 I am a: Patient What is your living situation today?: I have a steady place to live Within the past 12 months, did the food you bought not last and you didn't have the money to get more?: Never true Within the past 12 months, did you worry whether your food would run out before you got money to buy more?: Never true Do you have trouble paying for medicines?: No Do you have trouble getting transportation to medical appointments?: No Do you have trouble paying your heating and electricity bill?: No Do you have trouble taking care of your child, family member or friend?: No Do you have trouble with day-to-day activities such as bathing, preparing meals, shopping, managing finances, etc.?: No Are you currently unemployed and looking for a job?: No Are you interested in more education?: No Please select the resources that you would like help with: None Currently or been in a relationship where the following occur: No concerns reported THRIVE Score: 0 SWETA-7 AMB Questionnaire SWETA-7 Date SWETA - 7 assessed: 08/15/24 Source: Developed by Drs. Colin Perera, Peace Oleary, Major Farnsworth and colleagues, with an educational jean from [employer] Physical exam (Primary Care) Vital Signs: Last Vital Signs Temp 98.2 F 08/29/24 09:12 Pulse 89 08/29/24 09:12 Resp 16 08/29/24 09:12 BP 110/70 08/29/24 09:12 Pulse Ox 100 08/29/24 09:12 Oxygen Delivery Method Room Air 08/29/24 09:12 BMI result Body Mass Index 31.2 Tobacco/Smoking Status: Tobacco use Status Tobacco use date assessed 08/29/24 08/29/24 09:15 Patient Tobacco Use Status Never used Tobacco 08/29/24 09:15 e-Cigarette/Vaping Use Never Used 08/29/24 09:15 Thrive Assessment: Date of Thrive Assessment Date Thrive assessed 08/08/24 08/29/24 09:15 Currently or been in a relationship where the following occur: No concerns reported Coding Level of Care Code Est Pt Level 3 (44812) Complex EM visit Add On G2211 Diagnoses Mild anemia D64.9 Chronic constipation K59.09 Palpitations R00.2 Assessment & Plan Assessment & Plan (1) Mild anemia: Code(s): D64.9 - Anemia, unspecified Category: Medical Plan: . (2) Chronic constipation: Code(s): K59.09 - Other constipation Category: Medical Plan: . (3) Palpitations: Code(s): R00.2 - Palpitations Category: Medical Plan: . Plan . Orders: Orders ECG 3 day holter monitor Today R00.2 - Palpitations Medications: New multivitamin with iron 1 tab PO DAILY 90 tabs 2RF polyethylene glycol 3350 (Miralax) titrate to effect, hold for diarrhea; Take at bedtime in at least 8 oz of fluid. 17 grams PO DAILY 510 grams 7RF
[2024-08-29 09:12] VITALS: BP 110/70; PULSE 89; RESP 16; TEMP 36.8; O2SAT 100; BMI 31.2
== END 2024-08-29 09:47 | disposition home or self-care (01) ==
PROVIDERS: PCP Nurse Practitioner Family; Visit Provider Nurse Practitioner Family
DX: D64.9 Anemia, unspecified (principal); K59.09 Other constipation; R00.2 Palpitations

== ENCOUNTER → 2024-09-16 08:28 | Outpatient (REF) | payer BC, SELFPAY | LOC: HO.CARD 08:28 | PROVIDERS: PCP Nurse Practitioner Family; Visit Provider Nurse Practitioner Family | DX: R00.2 Palpitations (principal) | CPT/HCPCS: 93242 ==

== ENCOUNTER → 2024-09-16 08:30 | Outpatient (BNV) | payer BC, SELFPAY | PROVIDERS: PCP Nurse Practitioner Family; Visit Provider Internal Medicine | DX: I47.10 Supraventricular tachycardia, unspecified (principal) | CPT/HCPCS: 93244 ==

== ENCOUNTER 2024-10-15 08:57 | Outpatient (AMB) | payer BC, SELFPAY ==
[2024-10-15 09:00] VITALS: BP 116/72; PULSE 72; O2SAT 98; BMI 31.4
--- NOTE | 2024-10-15 09:00 | MHC.PC.OV ---
Vital Signs 10/15/24 09:00 Height 5 ft 1 in Weight 166 lb BMI 31.4 BP 116/72 Blood Pressure Location Lt brachial Position Sitting Pulse 72 Pulse Source Pulse Oximeter Pulse Oximetry (%) 98 Intake Visit Reasons: 6 weeks fu holter monitor and constipation 15 min Intake Note: pt is here for 6 week f/up, results from holter monitor, and hx of constipation and states mirlax has helped Privacy Officer Required: No Accompanied by: Self / Same As Patient Allergies No Known Allergies Allergy (Verified 10/15/24 09:23) Tobacco use date assessed: 08/29/24 Dental Screening Dental Screen Date: 08/29/24 HPI HPI Comments History of Present Illness Details 39 y/o F with obesity, chronic constipation, anemia, palpitations Surgical hx: c section x 2, tubal ligation 2021 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 Has 3 children, 2 dtrs and 1 son . Health Maintenance Tdap 2021 @ [facility] Flu declined Pap Specialists: TREATER Optho The patient is a 39-year-old female presenting for f/u on palpitations. The palpitations have been concerning for rapid episodes, and a Holter monitor was initiated to capture these events. The Holter monitor results indicated infrequent episodes of supraventricular tachycardia (SVT), characterized by paired high heart rates or couplets. The episodes were recorded during times of rest, such as late at night and likely unrelated to physical exertion since they did not occur when the patient attended the gym around usual times in the evening. The underlying rhythm was sinus with occasional rare supraventricular and ventricular ectopy. The patient also reports constipation, which has been managed with miralax and the condition has slightly improved. Just started MVI with Iron this week. No GI upset. Review of Systems - Cardiovascular: Reports intermittent palpitations. - Gastrointestinal: Reports improvement in constipation with treatment. Exam: Awake alert NAD Thyroid nonpalp RRR LS CTAB Abd soft, nontender, normoactive BS x 4 Mood and affect appropriate Results Holter 09/16/24 -see below Plan - Referral to cardiology for further assessment and management of supraventricular tachycardia. - Advise to maintain a diary to track episodes of palpitations, including time, activity, and associated symptoms. - Continue with multivitamin containing iron and fiber supplementation for constipation management. Patient was informed and verbally consented to the use of an ambient scribe for clinic note documentation during this visit. Discussion Notes I discussed with the patient that the Holter monitor showed rare episodes of supraventricular tachycardia, with infrequent onset and without any concerning findings like blockages or heart stops. The rhythm was primarily sinus with occasional ectopy. I explained the possibility of consulting cardiology for further evaluation to understand the underlying cause of the palpitations, even though they are infrequent. The patient agreed to the referral to [facility]'s cardiology team for specialized input. There was an emphasis on the importance of documenting any future episodes of palpitations in a diary to help correlate them with specific activities or states of rest and potentially assist the motion picture critic. I also encouraged the continuation of the multivitamin with iron and advised on maintaining hydration to support digestive health. Patient Instructions - Follow up with the cardiology department at [facility] when contacted. - Keep a record of any palpitations and note any activities or symptoms. - Continue taking the multivitamin with iron and fiber powder. - Stay hydrated and monitor for exacerbation of constipation. - Contact us if you experience any new symptoms or worsening conditions. - RTO 3 months CPE, sooner PRN This note is constructed using voice recognition software. While every effort has been made to ensure accuracy in oakes machine operator, still errors may have been included Sometimes, these errors may affect the content or meaning of the given sentence . Total time spent caring for the patient today was 30 minutes. This includes time spent before the visit reviewing the chart, time spent during the visit, and time spent after the visit on documentation PFSH Medical History No pertinent past medical history COVID-19 Surgical History H/O section Family History Mother High cholesterol Diabetes Social History Household Members: Spouse and Children Both parents involved: No Caregiver staying overnight: No Housing: Apartment Are you a primary career and guidance counselor to a significant other at home: Yes Do you presently have visiting nurse or other home services: No 75 years or older and lives alone: No Alcohol intake: current Alcohol intake frequency: a few times a month Patient Tobacco Use Status: Never used Tobacco e-Cigarette/Vaping Use: Never Used Second Hand Smoke Exposure: No service: No Current occupational status: employed 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 [employer] Cognitive needs: No Hearing needs: No Vision needs: Yes (wear glasses) Questionnaire Thrive Questionnaire Date Thrive assessed: 10/15/24 I am a: Patient What is your living situation today?: I have a steady place to live Within the past 12 months, did the food you bought not last and you didn't have the money to get more?: Never true Within the past 12 months, did you worry whether your food would run out before you got money to buy more?: Never true Do you have trouble paying for medicines?: No Do you have trouble getting transportation to medical appointments?: No Do you have trouble paying your heating and electricity bill?: No Do you have trouble taking care of your child, family member or friend?: No Do you have trouble with day-to-day activities such as bathing, preparing meals, shopping, managing finances, etc.?: No Are you currently unemployed and looking for a job?: No Are you interested in more education?: No Please select the resources that you would like help with: None Currently or been in a relationship where the following occur: No concerns reported THRIVE Score: 0 SWETA-7 AMB Questionnaire SWETA-7 Date SWETA - 7 assessed: 08/15/24 Source: Developed by Drs. Colin Perera, Peace Oleary, Major Farnsworth and colleagues, with an educational jean from [employer]. Physical exam (Primary Care) Vital Signs: Last Vital Signs Pulse 72 10/15/24 09:00 BP 116/72 10/15/24 09:00 Pulse Ox 98 10/15/24 09:00 BMI result Body Mass Index 31.4 Tobacco/Smoking Status: Tobacco use Status Tobacco use date assessed 08/29/24 10/15/24 09:01 Patient Tobacco Use Status Never used Tobacco 10/15/24 09:01 e-Cigarette/Vaping Use Never Used 10/15/24 09:01 Thrive Assessment: Date of Thrive Assessment Date Thrive assessed 10/15/24 10/15/24 09:06 Currently or been in a relationship where the following occur: No concerns reported Results Reviewed Results Reviewed: [address] [address] Holter Monitor Report Signed Patient: Karuna Knutson MR#: [id number] : 1985 Acct:[id number] Age/Sex: 39 / F ADM Date: 09/16/24 Loc: [facility] Attending Dr: Sarah OQUENDO Ordering Physician: Sarah Rocha Date of Service: 09/16/24 Procedure(s): ECG 3 day holter monitor Accession Number(s): cc: Sarah Rocha~ Total monitoring time 3 days. Underlying rhythm is sinus with an average rate of 82/Min. Rare supraventricular and ventricular ectopy. No significant pauses or high-grade AV blocks. No patient markers or diary events. Dictated By: Mike Barragan MD Signed By: <Electronically signed by Mike Barragan MD> 09/30/24 1011 DD/ 0830 TD/TT: 09/29/24829 Irrigator Head: Coding Level of Care Code Est Pt Level 4 (70781) Complex EM visit Add On G2211 Diagnoses Palpitations R00.2 Paroxysmal SVT (supraventricular tachycardia) I47.10 Chronic constipation K59.09 Mild anemia D64.9 Assessment & Plan Assessment & Plan (1) Palpitations: Code(s): R00.2 - Palpitations Category: Medical (2) Paroxysmal SVT (supraventricular tachycardia): Code(s): I47.10 - Supraventricular tachycardia, unspecified Category: Medical (3) Chronic constipation: Code(s): K59.09 - Other constipation Category: Medical (4) Mild anemia: Code(s): D64.9 - Anemia, unspecified Category: Medical Plan ., Orders: Referrals Cardiology Referral I47.10 - Supraventricular tachycardia, unspecified, R00.2 - Palpitations
== END 2024-10-15 09:33 | disposition home or self-care (01) ==
PROVIDERS: PCP Nurse Practitioner Family; Visit Provider Nurse Practitioner Family
DX: R00.2 Palpitations (principal); I47.10 Supraventricular tachycardia, unspecified; K59.09 Other constipation; D64.9 Anemia, unspecified

== ENCOUNTER → 2024-10-15 08:57 | Outpatient (BNVA) | payer BC, SELFPAY | PROVIDERS: PCP Nurse Practitioner Family; Visit Provider Nurse Practitioner Family ==

== ENCOUNTER 2024-12-30 12:01 | Outpatient (AMB) | payer BC, SELFPAY ==
--- NOTE | 2024-12-30 12:09 | MHC.PC.OV ---
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: No Allergies No Known Allergies Allergy (Verified 12/30/24 12:31) Medication List - Last Reconciled 12/30/24 by MEHDI Jiang- multivitamin with iron 1 tab PO DAILY polyethylene glycol 3350 (Miralax) 17 grams PO DAILY Tobacco use date assessed: 12/30/24 Dental Screening Dental Screen Date: 12/30/24 Did you have a dental visit in the last 12 months?: Yes Did you have a dental problem in the last 6 months where you did not have access to dental care?: No Was dental information given to patient?: Patient has dentist HPI HPI Comments History of Present Illness Details 39 y/o F with obesity, chronic constipation, anemia, palpitations Surgical hx: c section x 2, tubal ligation 2021 Family hx: no changes Social: [employer] at [employer]. Has 3 children, 2 dtrs and 1 son . 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 - The patient's obesity is a chronic issue, with noted weight loss since the last visit. - Her chronic constipation was previously managed with MiraLAX; however, the symptoms have improved, and usage has ceased. - Cont to experience palpitations causing shortness of breath, with a pending cardiology evaluation. 01/2025 - Anemia was identified in a lab test last August; she continues multivitamin with iron supplementation. - Recent nausea and vomiting episodes were associated with food consumption, resolved upon rest started yesterday. - A new skin tag was reported on the body L side of neck. - Her last Pap smear was in 2022, and she plans to schedule an upcoming exam. - Declined flu vaccination. - Awaiting an eye exam, with a referral to [facility] in place. Review of Systems - Gastrointestinal: Denies changes in bowel movements; notes improvement in constipation - Cardiovascular: Reports palpitations causing shortness of breath - Neurological: Reports dizziness when changing positions - Integumentary: Notes presence of new skin tag Physical Exam General: Well developed, well nourished, in no acute distress. Appears stated age. Weight is down a bit, noted during the visit. Head: Normocephalic, atraumatic. Eyes: Pupils are equal, round and reactive to light and accommodation. Conjunctivae are clear. Vision grossly normal. Ears: TMs clear AU, EACS WNL Nose: Patent, without discharge. Neck: Supple, no adenopathy or thyromegaly. Breast: Edu on SBE. Patient advised on self-breast exams. Lungs: Clear to auscultation bilaterally. No rales, rhonchi or wheeze noted. Good air flow in all ortiz. Heart: Regular rate and rhythm. No murmurs, click, rubs or gallops are noted. Abdomen: Bowel sounds present in all quadrants. The abdomen is soft, nontender, with no masses or organomegaly noted. No hernias are noted. : Deferred. 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 Pulses: Peripheral pulses are equal and palpable bilaterally. Extremities: No clubbing, cyanosis nor edema is noted. Neurologic: Gait and station normal. Cranial Nerves 2-12 intact. Motor strength grossly symmetrical and intact. No sensory loss. Balance normal. Skin: No rashes, ulcers, or lesions noted. Turgor is good. Skin color is good. Hair and nails are without abnormalities. Noted skin tag L neck, options for removal discussed - declined @ this time Psych: Normal eye contact, affect and mood appropriate, and normal interactions. Patient is alert and appropriate to context. Results - Labs: Mild anemia found in August; iron supplementation ongoing Discussion Notes I discussed with the patient the nature and potential management options for each of her concerns, including obesity, palpitations, and nausea. I advised her on the necessity of continuing with her iron supplement to address anemia and recommended Pedialyte for hydration, especially post-vomiting. We talked about the referral to cardiology for her palpitations. I informed her about the possibility of lzjf-wcs-[id number] treatment options for skin tags. We also went over the planned repetition of labs to assess anemia improvement. I emphasized the importance of scheduling her recommended eye examination and Pap smear. We reviewed the need for future follow-up on her wellness checks and encouraged her promptly to reach out if she had any concerns. Assessment and Plan 1. Obesity: Recommended continued healthy lifestyle choices with emphasis on diet and exercise. 2. Chronic Constipation: Patient has noted improvement; plan to monitor without medication. 3. Cardiac Palpitations: Scheduled for cardiology evaluation. Follow-up pending patient observer's advice. 4. Anemia: Encourage continuation of iron supplement, with repeat labs to check improvement. 5. Nausea and Vomiting: Advised hydration with Pedialyte for electrolyte balance; Benadryl for nausea if necessary. 6. Skin Tags: Provided options of ycrd-lbm-nsnmsme treatment or surgical intervention. 7. Health Maintenance: Emphasized scheduling of Pap smear and eye exam to maintain routine care. - RTO 1 year CPE sooner prn Patient Instructions - Continue with multivitamin containing iron as directed. - Stay hydrated with Pedialyte, especially after vomiting. - Take Benadryl if nausea persists. - Attend the cardiology appointment on February 10. - Call [facility] [place] to schedule your eye exam. - Schedule a Pap smear with your women's health provider. - Maintain current exercise and diet regimen to support weight loss. - Monitor for any new or concerning symptoms and report them promptly. Consent Patient was informed and verbally consented to the use of an ambient scribe for clinic note documentation during this visit. [facility] Medical History (Updated 12/30/24 @ 15:34 by Sarah Rocha [facility]) COVID-19 No pertinent past medical history Surgical History (Updated 12/30/24 @ 12:34 by Sarah Rocha [facility] H/O section History of Papanicolaou smear of cervix (~2022) Family History Mother High cholesterol Diabetes Social History Household Members: Spouse and Children Both parents involved: No Caregiver staying overnight: No Housing: Apartment Are you a primary palliative care nurse to a significant other at home: Yes Do you presently have visiting nurse or other home services: No 75 years or older and lives alone: No Alcohol intake: current Alcohol intake frequency: a few times a month Patient Tobacco Use Status: Never used Tobacco e-Cigarette/Vaping Use: Never Used Second Hand Smoke Exposure: No service: No Current occupational status: employed 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 1. Little interest or pleasure in doing things: not at all 2. Feeling down, depressed, or hopeless: not at all 3. Trouble falling or staying asleep, or sleeping too much: not at all 4. Feeling tired or having little energy: not at all 5. Poor appetite or overeating: not at all 6. Feeling bad about yourself - or that you are a failure or have let yourself or your family down: not at all 7. Trouble concentrating on things, such as reading the newspaper or watching television: not at all 8. Moving or speaking so slowly that other people could have noticed. Or the opposite - being so fidgety or restless that you have been moving around a lot more than usual: not at all 9. Thoughts that you would be better off or of hurting yourself in some way: not at all Total score: 0 Depression Screening Interpretation: Negative Depression Screening Done: Yes 40577 - PHQ-9 Billing: Yes Source: Developed by Drs. Colin Perera, Peace Oleary, Major Farnsworth and colleagues, with an educational jean from [employer]. Thrive Questionnaire Date Thrive assessed: 12/30/24 I am a: Patient What is your living situation today?: I have a steady place to live Within the past 12 months, did the food you bought not last and you didn't have the money to get more?: Never true Within the past 12 months, did you worry whether your food would run out before you got money to buy more?: Never true Do you have trouble paying for medicines?: Yes Do you have trouble getting transportation to medical appointments?: No Do you have trouble paying your heating and electricity bill?: No Do you have trouble taking care of your child, family member or friend?: No Do you have trouble with day-to-day activities such as bathing, preparing meals, shopping, managing finances, etc.?: No Are you currently unemployed and looking for a job?: No Are you interested in more education?: No Please select the resources that you would like help with: None Currently or been in a relationship where the following occur: No concerns reported THRIVE Score: 0 AUDIT C Alcohol Use Questionnaire (AUDIT-C) 1. How often do you have a drink containing alcohol?: 2-4 times a month 2. How many drinks containing alcohol do you have on a typical day when you are drinking?: 1 or 2 3. How often do you have six or more drinks on one occasion?: Never Total Score: 2 Score Reviewed/Action Taken: Yes SWETA-7 AMB Questionnaire SWETA-7 Date SWETA - 7 assessed: 12/30/24 Feeling nervous, anxious, or on edge: 0 = Not at all Not being able to stop or control worryin = Not at all Worrying too much about different things: 0 = Not at all Trouble relaxin = Not at all Being so restless that it is hard to sit still: 0 = Not at all Becoming easily annoyed or irritable: 0 = Not at all Feeling afraid as if something awful might happen: 0 = Not at all Total SWETA-7 score (0-4 normal; 5-9 mild; 10-14 moderate; 15-21 severe): 0 Source: Developed by Drs. Colin Perera, Peace Oleary, Major Farnsworth and colleagues, with an educational jean from [employer]. SWETA-7 Assessment Billing SWETA-7 Assessment Tool: SWETA-7 Assessment 12273 Physical exam (Primary Care) Vital Signs: Last Vital Signs Temp 97.1 F 12/30/24 12:15 Pulse 76 12/30/24 12:15 Resp 12 12/30/24 12:15 BP 98/67 12/30/24 12:15 Pulse Ox 97 12/30/24 12:15 Oxygen Delivery Method Room Air 12/30/24 12:15 BMI result Body Mass Index 29.9 Tobacco/Smoking Status: Tobacco use Status Tobacco use date assessed 12/30/24 12/30/24 12:12 Patient Tobacco Use Status Never used Tobacco 12/30/24 12:12 e-Cigarette/Vaping Use Never Used 12/30/24 12:12 PHQ-9: PHQ-9 Score PHQ-9: Total score 0 12/30/24 12:36 Depression Screening Interpretation: Negative Thrive Assessment: Date of Thrive Assessment Date Thrive assessed 12/30/24 12/30/24 12:12 Currently or been in a relationship where the following occur: No concerns reported Coding Level of Care Code Est Pt Prev Care 18-39y(61566) Diagnoses Encounter for general adult medical examination without abnormal findings Z00.00 Mild anemia D64.9 Palpitations R00.2 Paroxysmal SVT (supraventricular tachycardia) I47.10 Blurred vision H53.8 Chronic constipation K59.09 Bilious vomiting with nausea R11.14 Vomiting type: bilious vomiting Influenza vaccination declined Z28.21 Additional Codes SWETA-7 Assessment Billing - SWETA-7 Assessment Tool: SWETA-7 Assessment 11365 ([id number]) PHQ-9 - 12524 - PHQ-9 Billing: Yes ([id number]) Assessment & Plan Assessment & Plan (1) Encounter for general adult medical examination without abnormal findings: Code(s): Z00.00 - Encounter for general adult medical examination without abnormal findings (2) Mild anemia: Code(s): D64.9 - Anemia, unspecified Category: Medical (3) Palpitations: Code(s): R00.2 - Palpitations Category: Medical (4) Paroxysmal SVT (supraventricular tachycardia): Comment: holter 09/2024 Code(s): I47.10 - Supraventricular tachycardia, unspecified Category: Medical (5) Blurred vision: Code(s): H53.8 - Other visual disturbances Category: Medical (6) Chronic constipation: Code(s): K59.09 - Other constipation Category: Medical (7) Nausea & vomiting: Code(s): R11.2 - Nausea with vomiting, unspecified Qualifiers: Vomiting type: bilious vomiting Qualified Code(s): R11.14 - Bilious vomiting (8) Influenza vaccination declined: Code(s): Z28.21 - Immunization not carried out because of patient refusal Category: Medical Plan . Orders: Orders Complete Blood Count no Diff Today D64.9 - Anemia, unspecified IRON PROFILE Today D64.9 - Anemia, unspecified Referrals Ophthalmology Referral H53.8 - Other visual disturbances Patient Instructions: Health screenings for women You should visit your health care provider from time to time, even if you are healthy. The purpose of these visits is to: Screen for medical issues Assess your risk for future medical problems Encourage a healthy lifestyle Update vaccinations and other preventive care services Help you get to know your provider in case of an illness Information Even if you feel fine, you should still see your provider for regular checkups. These visits can help you avoid problems in the future. For example, the only way to find out if you have high blood pressure is to have it checked regularly. High blood sugar and high cholesterol levels also may not have any symptoms in the early stages. A simple blood test can check for these conditions. There are specific times when you should see your provider or receive specific health screenings. The [place] Preventive Services Task Force publishes a list of recommended screenings. Below are screening guidelines for women ages 18 to 39. BLOOD PRESSURE SCREENING Your blood pressure should be checked at least once every 3 to 5 years if: Your blood pressure is in the normal range (top number less than 120 mm Hg and bottom number less than 80 mm Hg) You don't have risk factors for high blood pressure Ask your provider if you need your blood pressure checked more often if: The top number is 120 to 129 mm Hg or the bottom number is 70 to 79 mm Hg You have diabetes, heart disease, kidney problems, are overweight, or have certain other health conditions You have a first-degree relative with high blood pressure You are Black You had high blood pressure during a If the top number is 130 mm Hg or greater or the bottom number is 80 mm Hg or greater, this is considered stage 1 hypertension. Schedule an appointment with your provider to learn how you can reduce your blood pressure. Watch for blood pressure screenings in your area. Ask your provider if you can stop in to have your blood pressure checked. BREAST CANCER SCREENING Experts do not agree about the benefits of breast self-exams in finding breast cancer or saving lives. Talk to your provider about what is best for you. A screening mammogram is not recommended for most women under age 40. Your provider may discuss and recommend mammograms, MRI scans, or ultrasounds if you have an increased risk for breast cancer, such as: A mother or sister who had breast cancer at a young age (most often starting screening earlier than the age the close relative was diagnosed) You carry a high-risk genetic marker CERVICAL CANCER SCREENING Cervical cancer screening should start at age 21 years unless your provider advises otherwise. After the first test: Women ages 21 through 29 should have a Pap test every 3 years. Exoprts do not agree on whether HPV testing is recommended for this age group. Women ages 30 through 65 should be screened with either a Pap test every 3 years or the HPV test every 5 years or both tests every 5 years (called cotesting ). Women who have been treated for precancer (cervical dysplasia) should continue to have Pap tests for 20 years after treatment or until age 65, whichever is longer. If you have had your uterus and cervix removed (total hysterectomy), and you have not been diagnosed with cervical cancer or precancer (high grade cervical neoplasia), you do not need cervical cancer screening. CHOLESTEROL SCREENING Cholesterol screening should begin at: Age 45 for women with no known risk factors for coronary heart disease Age 20 for women with known risk factors for coronary heart disease Repeat cholesterol screening should take place: Every 5 years for women with normal cholesterol levels More often if changes occur in lifestyle (including weight gain and diet) More often if you have diabetes, heart disease, kidney problems, or certain other conditions DIABETES SCREENING You should be screened for diabetes starting at age 35 and then repeated every 3 years if you have no risk factors for diabetes. Screening may need to start earlier and be repeated more often if you have other risk factors for diabetes, such as: You have a first degree relative with diabetes. You are overweight or have obesity. You have high blood pressure, prediabetes, or a history of heart disease. Screening for diabetes should be done if you are planning to become and you are overweight and have other risk factors such as high blood pressure. DENTAL EXAM Go to the dentist once or twice every year for an exam and cleaning. Your dentist will evaluate if you need more frequent visits. EYE EXAM Have an eye exam every 5 to 10 years before age 40. If you have vision problems, have an eye exam every 2 years or more often if recommended by your provider. You should have an eye exam that includes an examination of your retina (back of your eye) at least every year if you have diabetes. IMMUNIZATIONS Commonly needed vaccines include: Flu shot: get one every year. COVID-19 vaccine: ask your provider what is best for you. Tetanus-diphtheria and acellular pertussis (Tdap) vaccine: have one at or after age 19 as one of your tetanus-diphtheria vaccines if you did not receive it as an adolescent. Tetanus-diphtheria: have a booster (or Tdap) every 10 years. Varicella vaccine: receive 2 doses if you never had chickenpox or the varicella vaccine. Hepatitis B vaccine: receive 2, 3, or 4 doses, depending on your exact circumstances. Measles, mumps, and rubella (MMR) vaccine: receive 1 to 2 doses if you are not already immune to MMR. Your provider can tell you if you are immune. Ask your provider about the human papillomavirus (HPV) vaccine if: You have not received the HPV vaccine in the past You have not completed the full vaccine series (you should catch up on this shot) Ask your provider if you should receive other immunizations if you have certain health problems that increase your risk for some diseases such as pneumonia. INFECTIOUS DISEASE SCREENING Women who are sexually active should be screened for chlamydia and gonorrhea up until age 25. Women 25 years and older should be screened for chlamydia and gonorrhea if at high risk. Screening for hepatitis C: All adults ages 18 to 79 should get a one-time test for hepatitis C. people should be screened at every . Screening for human immunodeficiency virus (HIV): All people ages 15 to 65 should get a one-time test for HIV. Depending on your lifestyle and medical history, you may also need to be screened for infections such as syphilis and HIV, as well as other infections. PHYSICAL EXAM All adults should visit their provider from time to time, even if they are healthy. The purpose of these visits is to: Screen for disease Assess your risk of future medical problems Encourage a healthy lifestyle Update your vaccinations and other preventive care services Maintain a relationship with a provider in case of an illness Your height, weight, and BMI should be checked at every exam. During your exam, your provider may ask you about: Depression and anxiety Diet and exercise Alcohol and tobacco use Safety issues, such as using seat belts, smoke detectors, and intimate partner violence Your medicines and risk for interactions SKIN SELF-EXAM Your provider may check your skin for signs of skin cancer, especially if you're at high risk, such as if you: Have had skin cancer before Have close relatives with skin cancer Have a weakened immune system OTHER SCREENING Talk with your provider about colon cancer screening if you have a strong family history of colon cancer or polyps, or if you have had inflammatory bowel disease or polyps yourself. Routine bone density screening of women under 40 is not recommended.
[2024-12-30 12:15] VITALS: BP 98/67; PULSE 76; RESP 12; TEMP 36.2; O2SAT 97; BMI 29.9
--- OUTSIDE RECORDS SUMMARY | 2024-12-30 14:16 | XMS_ITS | Data Portability ---
Author Organization [facility], [address] Address [address] [place] [address] Assessment No assessment recorded. Plan of Treatment Reminders Order Date Submit Date Provider Last Modified By Organization Details Last Modified Time Details Appointments None recorded. Lab rapid strep group A, throat 2021 [place], [address] [place] [address], [id number], 11:59:28 culture, respiratory 2021 [place] [facility], [address] [place] [address], [place], [address], 10:06:25 Referral None recorded. Procedures None recorded. Surgeries None recorded. Imaging None recorded. Medication Orders amoxicillin 875 mg tablet 2021 [id number], [address] [place], [place], [phone], 11:59:39 Allergy Relief (fluticason e) 50 mcg/actuati on nasal spray,suspe nsion 2021 [id number], [address], [place], [phone], 11:59:39 Patient TargetsNo targets recorded. Patient Instructions Encounter Date Encounter Id Patient Instructions Last Modified By Organization Details Last Modified Time 09/29/2022 [id number] sore throat: car e instructions Not available 09/29/2022 11:59:28 Please consult o ur office promptly if you develop any of the following symptoms: 1. A fever of at least 101? ? ?F or 38.4? ? ?C 2. Throat pain that is severe or does not start to improve within 5 to 7 days Call for an ambulance or go to the emergency room if you: 1. Have trouble breathing 2. Cannot control your saliva (drooling) due to difficulty swallowing 3. Have swelling of the neck or tongue 4. Cannot move your neck or have trouble opening your mouth Not available 09/29/2022 11:59:47 Discussed potential complications and intervention options with the patient during this visit. Patient was instructed to increase room humidity and eat soft bland foods. Raising the head of the bed, lozenges, and saline nasal spray were also recommended. Patient may take ibuprofen or acetaminophen as needed for pain control. If the issue does not improve in 24-48 hours, patient should return to the clinic for follow-up. You have been prescribed an antibiotic for your bacterial illness. While antibiotics are sometimes necessary, they can have a negative impact upon the healthy bacteria within your body. This can result in diarrhea/loose stools and yeast infections. By taking probiotics during the course of your prescription, you can lessen the probability of these undesirable side effects. Probiotics can be purchased wvbi-spu-ufziyxe at your pharmacy in the form of capsules or gummies. They are also found naturally in yogurt with live cultures. Mix salt into a quarter-glass of warm water and stir until no more salt will dissolve. Gargle and spit out the salt water mixture one mouthful at a time until the glass is empty. Repeat 4 times daily. Hand hygiene is a keating measure for preventing spread to others, especially after coughing or sneezing and before preparing foods or eating, and we remind all patients of its importance. Please discard of your current tooth brush and get a new one after being on the antibiotic for 3-4 days to prevent reinfection. You are considered contagious until you have the antibiotic for 24 hours. We have sent out for lab results, typically take 3-5 days to return. Not available 09/29/2022 11:59:57 Reason for Referral None Reported. Results Created Date Observation Date Name Description Value Unit Range Abnormal Flag Note LastModifiedBy Organization Detail LastModifiedTime 09/29/20 22 10/04/2022 UPPER RESPI RATOR Y CULTU RE upper respiratory culture Final report Not Available [facility] ([facility]) [address] [facility], [place], [address], 10/04/2022 10:06:25 09/29/20 22 10/04/2022 UPPER RESPI RATOR Y CULTU RE result 1 Commen t Routi ne respi rator y anna marie Not Available [facility] ([facility]) [address] [facility], [place], [address], 10/04/2022 10:06:25 09/29/20 22 09/29/2022 rapid strep group A, throa t Unknown Analyte Normal = Negati ve Not Available [facility] [address], [address], 09/29/2022 11:38:45 09/29/2009/29/2022 rapid strep group A, throa t Unknown Analyte negati ve Not Available [facility] [address] [address], [address], 09/29/2022 11:38:45 Result Notes None recorded. Problems No Known Problems Procedures Surgical History Date Name Laterality Status Provider Name and Address Organization Details Recorded Time section completed [facility] - [facility] 09/29/2022 11:41:25 Imaging Results None recorded. Procedure Notes None recorded. Medical Equipment None Reported. Allergies No known drug allergies Medications Name Sig Start Date Stop Date Status Note LastModified by Organization Details LastModified Time amoxicillin 875 mg tablet Take 1 tablet every 12 hours by oral route for 10 days. 2021 active Not Available Not Available Not Avai lable Allergy Relief (fluticasone ) 50 mcg/actuatio n nasal spray,suspen rehan Hinckley 1 spray twice a day by intranasal route for 30 days. 2021 active Not Available Not Available Not Avai lable Vitals Date Recorded Body height Body mass index (BMI) Body weight Body temperature Respiratory rate Heart rate Oxygen saturation Oxygen saturation in Arterial blood by Pulse oximetry Systolic blood pressure Diastolic blood pressure Provider Name and Address Organization Details Last Updated DateTime 2 154.94 cm 32.1 kg/m2 32191.7 g 97.9 [degF] 18 /min 96 /min 100 % 100 % 113 mm[Hg] 72 mm[Hg] GISELL Carranza PA - [facility] 11:42:16 Social History Question Answer Notes LastModified by Organizat ion Details LastModified Time Tobacco Smoking Status Never Smoker GISELL NAM deborah PA - [facility] 09/29/2022 11:41:05 What Is Your Level Of Alcohol Consumption? None Information not available 09/29/2022 What Is Your Water Source? City Information not available 09/29/2022 What Is Your Heat Source? Gas Information not available 09/29/2022 Have You Had Direct Contact, Or Contact During Intimacy, With Monkeypox Rash, Scabs, Or Body Fluids From A Person With Monkeypox? No Information not available 09/29/2022 Do You Use Any Illicit Or Recreational Drugs? No Information not available 09/29/2022 Have You Recently Traveled Abroad? No Information not available 09/29/2022 Do You Or Have You Ever Used Any Other Forms Of Tobacco Or Nicotine? No Information not available 09/29/2022 Sex: Unknown Functional Status None recorded. Mental Status None recorded. Family History Relationship Description Onset Age of this Age Resolved Age Notes LastModified by Organization Details LastModified Time Father No current problems or disability Not available 11:40:37 Mother No current problems or disability Not available 11:40:37 Mother Diabetes mellitus Not available 11:40:50 Medical History No medical history recorded. Gynecological History Statement/Question Response Date of LMP Obstetrics History GPAL:G 0 P 0 0 0 0 Past Encounters Encounter ID Performer Location Encounter Start Date Encounter Closed Date Diagnosis/Indication Diagnosis SNOMED-CT Code Diagnosis ICD10 Code Diagnosis Note [id number] Dawood Salazar [place] [address] [facility] [address] [place] [address] 09/29/2022 08:43:44 09/29/2022 12:07:32 Streptococcal sore throat 61426296 J02.0 Health Concerns Section Related Observation LastModified by Organization Detai ls LastModified Time None Recorded Concern Status LastModified by Organization Details LastModified Time None Recorded Advance Directives Directive None Recorded Payers Encounter Date Sequence Insurance Name Policy Number Policy Watts Covered Member ID Watts Member ID Guarantor Name 09/29/2022 1 [place] [facility] Karuna Knutson [id number] Karuna Knutson Notes Date Note Type Note Provider Name and Address Organization Details Recorded Time 2 text/html Sore throatReported bypatient.Source of patient informationInformation obtained from ; Patient arrived at Urgent Care ; learning styles: auditory Severity:moderate Quality:burning Onset/Timin days Associated Symptoms:no sputum production; no shortness of breath; no wheezing; no sinus pain; no vomiting; no nausea; No hoarseness;coughing Context:no sick contacts; no foreign travel; non-smoker Dawood Salazar NP [address] [place], [address], [place] - [facility] 09/29/2022 19:44:22 OBGyn Episode No OBEpisode recorded.
== END 2024-12-30 12:48 | disposition home or self-care (01) ==
LOC: HO.HMCFM 12:02
PROVIDERS: PCP Nurse Practitioner Family; Visit Provider Nurse Practitioner Family
DX: Z00.00 Encounter for general adult medical examination without abnormal findings (principal); D64.9 Anemia, unspecified; R00.2 Palpitations; I47.10 Supraventricular tachycardia, unspecified; H53.8 Other visual disturbances; K59.09 Other constipation; R11.14 Bilious vomiting; Z28.21 Immunization not carried out because of patient refusal

== ENCOUNTER → 2024-12-30 12:01 | Outpatient (BNVA) | payer BC, SELFPAY | PROVIDERS: PCP Nurse Practitioner Family; Visit Provider Nurse Practitioner Family | DX: Z00.00 Encounter for general adult medical examination without abnormal findings (principal); D64.9 Anemia, unspecified; R00.2 Palpitations; I47.10 Supraventricular tachycardia, unspecified; H53.8 Other visual disturbances; K59.09 Other constipation; R11.14 Bilious vomiting; Z28.21 Immunization not carried out because of patient refusal | CPT/HCPCS: 96127 ==

== ENCOUNTER 2025-02-10 12:53 | Outpatient (AMB) | payer BC, SELFPAY ==
[2025-02-10 12:55] VITALS: BP 100/64; PULSE 79; BMI 30.4
--- NOTE | 2025-02-10 12:55 | MHC.OFFVIS ---
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 Patient says over the last several months she has been having intermittent episodes of palpitations. They were less frequent but more recently they are happening on a more frequent basis almost on a daily to every other day basis. She said she had Holter monitor done in September and was told that she had abnormality was referred here. I reviewed the Holter monitor and she had rare PACs and PVCs without any sustained episodes of arrhythmias. She had no symptoms while she was wearing the Holter monitor for 3 days. She said the symptoms she describes as rapid heart rate happens out of no where while she was resting and symptoms could last up to a minute. She is very bothered by the symptoms. She says she is trying to take a deep breath but he is not able to take a deep breath when she has these symptoms and was 2 symptoms break she would get short of breath. She has not had any lightheadedness or syncope. No exertional chest pain. She is otherwise active and says walks about a mi a day and has no exertional symptoms. Denies any prior cardiac issues. She denies any significant ypsx-wxv-qtybmmw new medications or use of stimulants. She denies any change in her general health. She is currently not on any medications except for multivitamins for anemia. She is not taking that because that makes her nauseous. No family history of sudden cardiac that or any arrhythmias. [facility] Medical History No pertinent past medical history COVID-19 Surgical History History of Papanicolaou smear of cervix (~2022) H/O section Family History Mother High cholesterol Diabetes Social History Household Members: Spouse and Children Both parents involved: No Caregiver staying overnight: No Housing: Apartment Are you a primary critical care educator to a significant other at home: Yes Do you presently have visiting nurse or other home services: No 75 years or older and lives alone: No Alcohol intake: current Alcohol intake frequency: a few times a month Patient Tobacco Use Status: Never used Tobacco e-Cigarette/Vaping Use: Never Used Second Hand Smoke Exposure: No service: No Current occupational status: employed 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 [employer] Cognitive needs: No Hearing needs: No Vision needs: Yes (wear glasses) Review of Systems Const Denies chills, Denies daytime sleepiness, Denies fatigue, Denies fever(s), Denies frequent falls, Denies poor appetite, Denies snoring, Denies stops breathing during sleep, Denies weakness, Denies weight gain and Denies weight loss Eyes Denies loss of vision ENT Denies dizziness and Denies hearing loss Card Denies chest pain, Denies claudication, Denies leg edema, Denies lightheadedness, Reports palpitations, Reports dyspnea, Denies dyspnea on exertion and Denies orthopnea Resp Denies cough, Denies excessive phlegm production, Reports dyspnea, Denies dyspnea on exertion, Denies snoring and Denies wheezing GI Denies abdominal pain, Denies hematochezia, Denies change in bowel habits, Denies nausea and Denies vomiting Denies urinary frequency and Denies dysuria Musc Denies arthralgias, Denies muscle weakness, Denies numbness and Denies other (frequent falls) Skin/Breast Denies nail changes and Denies rash Neuro Denies Abnormal speech present, Denies dizziness, Denies frequent falls, Denies loss of vision, Denies memory loss, Denies numbness and Denies weakness Psych Denies depression and Denies memory loss Endo Denies fatigue and Reports palpitations Guero/Lymph Reports easy bruising and Reports other (anemia) Aller/Immun Denies wheezing Physical Exam Vital Signs: Last Vital Signs Pulse 79 02/10/25 12:55 BP 100/64 02/10/25 12:55 BMI result Body Mass Index 30.4 Const General: cooperative, comfortable, no acute distress, alert, awake, Physically active and well groomed Nutritional Appearance: overweight Orientation/consciousness: patient oriented x3 Limitations: no limitations HEENT Head: Yes normocephalic and Yes atraumatic Neck Neck: Yes trachea midline, Yes supple and Yes no JVD Resp Effort & Inspection: normal respiratory effort Auscultation: clear to auscultation bilaterally Cardio Jugular venous distension: no JVD Palpation: normal PMI Rate: regular rate Rhythm: regular rhythm Heart sounds: S1 normal heart sound present, S2 normal heart sound present, no click, no gallops, no murmurs and no rubs GI Auscultation: normal bowel sounds Skin General skin exam: no rashes or lesions noted Neuro General: patient oriented x3 and no focal motor deficits Speech: No Abnormal speech present Extrem General: Yes no clubbing, cyanosis or edema Psych Appearance: grossly normal Office Procedures EKG Details: EKG shows normal sinus rhythm normal EKG with no pre-excitation with [place] QT interval 17216-Txbetqyfphchevlss, Complete Assessment & Plan Assessment & Plan (1) Palpitations: Code(s): R00.2 - Palpitations Category: Medical Plan: Patient with intermittent episode of palpitation which have been increasing frequency recently in happening on daily basis quite bothersome to her. She would not have any symptoms while she was wearing a Holter monitor which showed rare PACs and PVCs. Room symptoms are most suggestive of SVT/atrial tachycardia. Less likely that this represent atrial fibrillation. We discussed that this needs to be investigated further to evaluate the etiology of her symptoms to properly guide treatment. I would suggest a 30 day event monitor to assess for the same. Further treatment based on findings. Avoidance of stimulants was discussed. No pharmacotherapy is recommended at this point time unless we have been establish diagnosis. Also suggest an echocardiogram to evaluate for structure of the heart. This was discussed with her. Management was discussed in details and she understands and agreeable. Will follow up in the clinic in 2 months time, sooner p.r.n.. Thank you for allowing me to partake in his care Orders: Orders ECG 30 day event monitor Today R00.2 - Palpitations CA echo transthoracic complete Today R00.2 - Palpitations Coding Level of Care Code New Pt Level 4 (53624) Complex EM visit Add On G2211 Diagnoses Palpitations R00.2 CPT Codes EKG - CPT: 65684-Wjedovyqghabtzexn, Complete ([id number])
--- OUTSIDE RECORDS SUMMARY | 2025-02-10 15:17 | XMS_ITS | Data Portability ---
Author Organization [facility], [address] Address [address] [place] [address] Assessment No assessment recorded. Plan of Treatment Reminders Order Date Submit Date Provider Last Modified By Organization Details Last Modified Time Details Appointments None recorded. Lab rapid strep group A, throat 2021 [place] [facility], [address] [place] [address], [phone], 11:59:28 culture, respiratory 2021 [place] [facility], [address] [place] [address], [place], [address], 10:06:25 Referral None recorded. Procedures None recorded. Surgeries None recorded. Imaging None recorded. Medication Orders amoxicillin 875 mg tablet 2021 [facility]54024, [address] [place], [place], [phone], 11:59:39 Allergy Relief (fluticason e) 50 mcg/actuati on nasal spray,suspe nsion 2021 [facility], [address] [place], [place], [phone], 11:59:39 Patient TargetsNo targets recorded. Patient Instructions Encounter Date Encounter Id Patient Instructions Last Modified By Organization Details Last Modified Time 09/29/2022 [id number] sore throat: car e instructions Not available [...] undesirable side effects. Probiotics can be purchased [id number]-[id number] at your pharmacy in the form of [...] respiratory culture Final report Not Available [facility] ([facility]) [address] [facility], [place], [address], 10/04/2022 10:06:25 09/29/20 22 10/04/2022 UPPER RESPI RATOR Y CULTU RE result 1 Commen t Routi ne respi rator y anna marie Not Available [facility] ([facility]) [address] [facility], [place], [address], 10/04/2022 10:06:25 09/29/20 22 09/29/2022 rapid strep group A, throa t Unknown Analyte Normal = Negati ve Not Available [facility], [address], 09/29/2022 11:38:45 09/29/2009/29/2022 rapid strep group A, throa t Unknown Analyte negati ve Not Available [facility] [address], [address], 09/29/2022 11:38:45 Result Notes None recorded. Problems No Known Problems Procedures Surgical History Date Name Laterality Status Provider Name and Address Organization Details Recorded Time section completed [facility] PA - [facility] 09/29/2022 11:41:25 [...] ) 50 mcg/actuatio n nasal spray,suspen rehan Scott 1 spray twice a day by intranasal [...] Updated DateTime 2 154.94 cm 32.1 kg/m2 54013.7 g 97.9 [degF] 18 /min 96 /min [...] SNOMED-CT Code Diagnosis ICD10 Code Diagnosis Note [id number] [place]wood [place] [address] [facility] [address] [place] [address] 09/29/2022 08:43:44 09/29/2022 12:07:32 Streptococcal sore throat [id number] J02.0 Health Concerns Section Related Observation LastModified by Organization Detai ls LastModified Time None Recorded Concern Status LastModified by Organization Details LastModified Time None Recorded Advance Directives Directive None Recorded Payers Encounter Date Sequence Insurance Name Policy Number Policy Watts Covered Member ID Watts Member ID Guarantor Name 09/29/2022 1 [place] [facility] Karuna Knutson [id number] Karuna Knutson Notes Date Note Type Note [...] Salazar NP [address] [place], [address], [place] - [facility] 09/29/2022 19:44:22 OBGyn Episode No OBEpisode recorded.
== END 2025-02-10 13:21 | disposition home or self-care (01) ==
LOC: HO.HCS 12:54
PROVIDERS: PCP Nurse Practitioner Family; Visit Provider Internal Medicine Cardiovascular Disease
DX: R00.2 Palpitations (principal)
CPT/HCPCS: 93010; 99204

== ENCOUNTER → 2025-02-10 12:53 | Outpatient (BNVA) | payer BC, SELFPAY | PROVIDERS: PCP Nurse Practitioner Family; Visit Provider Internal Medicine Cardiovascular Disease | DX: R00.2 Palpitations (principal) | CPT/HCPCS: 93005 ==

== ENCOUNTER → 2025-03-07 09:48 | Outpatient (REF) | payer BC, SELFPAY ==
--- NOTE | 2025-03-07 09:50 | CA_ITS ---
Transthoracic Echocardiogram Patient (Last, First, Middle): Karuna Knutson, Gender: Female Date of : 1985 Age: 39 Procedure Date: 03/07/2025 Procedure Type: Transthoracic Echocardiogram Location: OP Height: 154.94 cm Weight: 72.12 kg BSA: 1.71 m2 Heart Rate: bpm BP: 116 / 60 mmHg Sales Representative Business Courses: Referring MD: Ashutosh Glynn MD Symptoms: R00.2 - Palpitations Study Quality: Good ECG Rhythm: Sinus Conclusions: - Normal study. Findings Left Ventricle Normal left ventricular size, thickness, systolic function, and wall motion. The visually estimated ejection fraction is between 55-60%. Diastolic function is normal for age. Right Ventricle Normal right ventricular cavity size and systolic function. Atria Both atria are normal in size. Aortic Valve Normal aortic valve structure and function. There is no aortic valve stenosis. There is no aortic valve regurgitation. Mitral Valve Normal mitral valve structure and function. There is no mitral valve regurgitation. There is no mitral valve stenosis. Pulmonic Valve The pulmonic valve is likely normal. Tricuspid Valve Normal tricuspid valve structure. There is trace tricuspid valve regurgitation. Normal right atrial pressure. There is no evidence of pulmonary hypertension. Great Vessels All visible segments of the aorta are normal in size. The visualized portions of the pulmonary artery and branches are normal. Venous The inferior vena cava is normal in size and collapses greater than 50% with inspiration. Prior Study Comparison No prior study available for comparison. Measurements 2D Linear Measurements IVSd: 0.78 0.6-0.9/0.6-1.0 cm LVIDd: 4.46 3.9-5.3/4.2-5.9 cm LVIDd Index: 2.61 2.4-3.2/2.2-3.1 cm/m2 LVIDs: 2.87 2.0-3.6 cm LVPWd: 0.74 0.7-1.1 cm Ao Root: 2.90 2.1-3.5 cm LA Diam: 2.60 2.7-3.8/3.0-4.0 cm LAIDs Index: 1.52 1.5-2.3 cm/m2 LV Mass: 130.14 67-162/88-224 g LV Mass Index: 76.10 43-95/49-115 g/m2 LVOT Diam: 1.90 3.0+(-)1.3 cm 2D Systolic Function EF 4C: 63.80 >55% EF 2C: 61.20 >55% EF BiP: 63.10 >55% Mitral Valve MV Pk E: 0.75 MV PK A: 0.57 MV Decel Time: 187.00 E/A: 1.30 E'Lateral: 13.40 E'Medial: 8.81 E/E' Med: 8.50 E/E' Lat: 5.60 PHT: 55.00 MVA PHT: 4.00 Decel [place]usk: 4.03 Aortic Valve AoV Pk Kwabena: 1.33 AoV Mn Kwabena: 0.97 AoV VTI: 0.34 AoV Pk Grad: 7.00 Aov Mn Grad: 4.00 MELISSA Cont.VTI: 1.78 LVOT LVOT Pk Kwabena: 1.01 LVOT Mn Kwabena: 0.63 LVOT VTI: 0.21 LVOT Pk Grad: 4.00 LVOT Mn Grad: 2.00 LVOT Diam: 1.90 LVOT Area: 2.84 Diastolic Function MV Pk E: 0.75 MV Pk A: 0.57 E/A: 1.30 E'Medial: 8.81 E/E' Med: 8.50 E' Laterial: 13.40 E/E' Lat: 5.60 Right Ventricle TAPSE (mm): 25.00 TVS' Kwabena: 12.00 Tricuspid Valve TR Pk Kwabena: 1.91 TR Pk Grad: 15.00 RA Press: 3.00 RVSP: 18.00 Great Vessels Aorta Ao Root-2D: 2.90 2.0-3.7 cm Ao Asc: 2.50 2.1-3.4 cm Pulmonary Valve PV Pk Kwabena: 0.73 Peak PV Grad: 2.00 Updated in Other Vendor System with Status of Final Sulaiman Zaragoza MD electronically signed on 03/11/2025 11:17:58 AM with status of Final
--- OUTSIDE RECORDS SUMMARY | 2025-03-07 10:03 | XMS_ITS | Data Portability ---
Author Organization [facility], [address] Address [address] [place] [address] Assessment No assessment recorded. Plan of Treatment Reminders Order Date Submit Date Provider Last Modified By Organization Details Last Modified Time Details Appointments None recorded. Lab rapid strep group A, throat 2021 [facility], [address] [place] [address], [address], 11:59:28 culture, respiratory 2021 [place] [facility], [address] [place] [address], [place], [address], 10:06:25 Referral None recorded. Procedures None recorded. Surgeries None recorded. Imaging None recorded. Medication Orders amoxicillin 875 mg tablet 2021 [id number], [address], [place], [phone], 11:59:39 Allergy Relief (fluticason e) 50 mcg/actuati on nasal spray,suspe nsion 2021 [facility], [address], [place], [phone], 11:59:39 Patient TargetsNo targets recorded. Patient Instructions Encounter Date Encounter Id Patient Instructions Last Modified By Organization Details Last Modified Time 09/29/2022 [id number] sore throat: car e instructions Not available [...] undesirable side effects. Probiotics can be purchased rzum-oay-iakyavm at your pharmacy in the form of [...] respiratory culture Final report Not Available [facility] ([facility]) [address] [facility], [place], [address], 10/04/2022 10:06:25 09/29/20 22 10/04/2022 UPPER RESPI RATOR Y CULTU RE result 1 Commen t Routi ne respi rator y anna marie Not Available [facility] ([facility]) [address] [facility], [place], [address], 10/04/2022 10:06:25 09/29/20 22 09/29/2022 rapid strep group A, throa t Unknown Analyte Normal = Negati ve Not Available [facility], [address], 09/29/2022 11:38:45 09/29/2009/29/2022 rapid strep group A, throa t Unknown Analyte negati ve Not Available [facility] [address], [address], 09/29/2022 11:38:45 Result Notes None recorded. Problems No Known Problems Procedures Surgical History Date Name Laterality Status Provider Name and Address Organization Details Recorded Time section completed [facility] PA - [facility] [...] ) 50 mcg/actuatio n nasal spray,suspen rehan [place] 1 spray twice a day by intranasal route for 30 days. 2021 active Not Available Not Available Not Avai lable Vitals Date Recorded Body height Body mass index (BMI) Body weight Body temperature Respiratory rate Heart rate Oxygen saturation Oxygen saturation in Arterial blood by Pulse oximetry Systolic blood pressure Diastolic blood pressure Provider Name and Address Organization Details Last Updated DateTime 154.94 cm 32.1 kg/m2 69035.7 g 97.9 [degF] 18 /min 96 /min 100 % 100 % 113 mm[Hg] 72 mm[Hg] GISELL Carranza PA - [facility] 11:42:16 Social History Question Answer Notes LastModified by [employer] Details LastModified Time Tobacco Smoking Status Never Smoker GISELL cabrera PA - [facility] 09/29/2022 11:41:05 What Is Your Water Source? City Information not available 09/29/2022 What Is Your Heat Source? Gas Information not available 09/29/2022 Have You Had Direct Contact, Or Contact During Intimacy, With Monkeypox Rash, Scabs, Or Body Fluids From A Person With Monkeypox? No Information not available 09/29/2022 Have You Recently Traveled Abroad? No Information not available 09/29/2022 Sex: Unknown Functional Status Question Answer Note LastModified by [employer] Details LastModified Time Do you use any illicit or recreational drugs? No Information not available 09/29/2022 Do you or have you ever used any other forms of tobacco or nicotine? No Information not available 09/29/2022 What is your level of alcohol consumption? None Information not available 09/29/2022 Mental Status None recorded. Family History Relationship [...] SNOMED-CT Code Diagnosis ICD10 Code Diagnosis Note [id number] [place] [address] [address] 09/29/2022 08:43:44 09/29/2022 12:07:32 Streptococcal sore throat 21079572 J02.0 Health Concerns Section Related Observation LastModified by Organization Detai ls LastModified Time None Recorded Concern Status LastModified by Organization Details LastModified Time None Recorded Advance Directives Directive None Recorded Payers Insurance Date Sequence Insurance Name Policy Number Policy Watts Covered Member ID Watts Member ID Guarantor Name 09/29/2022 1 [place] [facility] Karuna Knutson [id number] Karuna Zenia Notes Date Note Type Note Provider Name [...] Salazar NP [address] [place], [address], [place] - [facility] 09/29/2022 19:44:22 OBGyn Episode No OBEpisode recorded.
== END ==
LOC: HO.CARD 09:48
PROVIDERS: PCP Nurse Practitioner Family; Visit Provider Internal Medicine Cardiovascular Disease
DX: R00.2 Palpitations (principal)
CPT/HCPCS: 93270; 93306

== ENCOUNTER → 2025-03-07 09:50 | Outpatient (BNV) | payer BC, SELFPAY | PROVIDERS: PCP Nurse Practitioner Family; Visit Provider Internal Medicine Cardiovascular Disease | DX: R00.2 Palpitations (principal) | CPT/HCPCS: 93306 ==

== ENCOUNTER 2025-04-07 08:57 | Outpatient (AMB) | payer BC, SELFPAY ==
[2025-04-07 09:08] VITALS: PULSE 64; TEMP 36.7; O2SAT 97; BMI 30.6
--- NOTE | 2025-04-07 09:08 | MHC.OFFWIV ---
Intake Vital Signs 04/07/25 09:08 Height 5 ft 1 in Weight 162 lb BMI 30.6 Pulse 64 Pulse Source Pulse Oximeter Temp 98.0 F Temp Source Oral Pulse Oximetry (%) 97 Oxygen Delivery Method Room Air Intake Visit Reasons: EP-rt ear pain Intake Note: Patient present right ear pain times 4 days Patient Tobacco Use Status: Never used Tobacco Allergies No Known Allergies Allergy (Verified 04/07/25 09:12) Do you need a note to return to daycare/school/sports/work: No HPI HPI Comments History of Present Illness Details History of Present Illness - The patient is a 40-year-old female presenting with an earache. - The earache has been present for approximately four days, characterized by sharp pain. - The patient reports feeling the pain in the right ear and the pain radiates to the head. - She has no drainage or discharge. - There is no history of fever, congestion, or swimming activities. - She denies congestion, runny nose, ESPANA, dizziness, cough, CP, SOB, abd, pain, n/v/d. - She denies sick contacts. Physical Exam General: Cooperative, healthy appearing, comfortable, no acute distress and well developed Ears: hearing grossly normal bilaterally. No tragus tenderness noted, no mastoid tenderness noted. Cerumen noted in the canals bilaterally. TM's not visualized bilaterally. Nose: Normal external nose present Face and sinus: Normal facial exam Neck: Normal visual inspection and Yes full ROM. No lymphadenopathy noted. Respiratory: Normal respiratory effort and able to speak in complete sentences. Clear to auscultation bilaterally Cardiovascular: Regular rate and rhythm. Normal S1 and S2 Skin: No rashes or lesions noted Patient was informed and verbally consented to the use of an ambient scribe for clinic note documentation during this visit. [facility] Medical History No pertinent past medical history COVID-19 Surgical History History of Papanicolaou smear of cervix (~2022) H/O section Family History Mother High cholesterol Diabetes Social History Household Members: Spouse and Children Both parents involved: No Caregiver staying overnight: No Housing: Apartment Are you a primary infant childcare provider to a significant other at home: Yes Do you presently have visiting nurse or other home services: No 75 years or older and lives alone: No Alcohol intake: current Alcohol intake frequency: a few times a month Patient Tobacco Use Status: Never used Tobacco e-Cigarette/Vaping Use: Never Used Second Hand Smoke Exposure: No service: No Current occupational status: employed 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 [employer] Cognitive needs: No Hearing needs: No Vision needs: Yes (wear glasses) Review of Systems Const All systems reviewed & are unremarkable except as noted in HPI and below Physical Exam Vital Signs: Last Vital Signs Temp 98.0 F 04/07/25 09:08 Pulse 64 04/07/25 09:08 Pulse Ox 97 04/07/25 09:08 Oxygen Delivery Method Room Air 04/07/25 09:08 BMI result Body Mass Index 30.6 Assessment & Plan Assessment & Plan (1) Impacted cerumen of both ears: Code(s): H61.23 - Impacted cerumen, bilateral Plan Most likely cerumen impaction Plan - Recommend ear flushing to remove wax impaction and relieve pressure on the tympanic membrane. - Consider using ear drops at home to soften the wax if flushing is not performed immediately. - Debrox drops sent to the pharmacy - Avoid q-tips - Follow up with PCP Orders: Orders AMB Cerumen Removal Today H61.23 - Impacted cerumen, bilateral Medications: New carbamide peroxide 6.5% (Debrox) 5 drps otic (ears) DAILY 15 mL 0RF 4 days Coding Level of Care Code Est Pt Level 3 (02482) Diagnoses Impacted cerumen of both ears H61.23
--- OUTSIDE RECORDS SUMMARY | 2025-04-07 09:31 | XMS_ITS | Data Portability ---
Author Organization [facility], [address] Address [address] [place] [address] Assessment No assessment recorded. Plan of Treatment Reminders Order Date Submit Date Provider Last Modified By Organization Details Last Modified Time Details Appointments None recorded. Lab rapid strep group A, throat 2021 [facility], [address] [place] [address], [phone], 11:59:28 culture, respiratory 2021 [place] [facility], [address] [place] [address], [place], [address], 10:06:25 Referral None recorded. Procedures None recorded. Surgeries None recorded. Imaging None recorded. Medication Orders amoxicillin 875 mg tablet 2021 [place] [facility] #07758, [address], [place], [phone], 11:59:39 Allergy Relief (fluticason e) 50 mcg/actuati on nasal spray,suspe nsion 2021 [facility], [address], [place], [phone], 11:59:39 Patient TargetsNo targets recorded. Patient Instructions Encounter Date Encounter Id Patient Instructions Last Modified By Organization Details Last Modified Time 09/29/2022 [id number] sore throat: car e instructions Not available 09/29/2022 11:59:28 Please consult o ur office promptly if you develop any of the following symptoms: 1. A fever of at least 101 F or 38.4 C 2. Throat pain that is severe or [...] undesirable side effects. Probiotics can be purchased lgqh-eid-gjlnnrl at your pharmacy in the form of [...] culture Final report Not Available [facility] ([facility]) [address], [place], [address], 10/04/2022 10:06:25 09/29/20 22 10/04/2022 UPPER RESPI RATOR Y CULTU RE result 1 Commen t Routi ne respi rator y anna marie Not Available [facility] ([facility]) [address], [place], [address], 10/04/2022 10:06:25 09/29/20 22 09/29/2022 rapid strep group A, throa t Unknown Analyte Normal = Negati ve Not Available [address] [place] [address], [address], 09/29/2022 11:38:45 09/29/2009/29/2022 rapid strep group A, throa t Unknown Analyte negati ve Not Available [facility] [address], [address], 09/29/2022 11:38:45 Result Notes None recorded. Problems No Known Problems Procedures Surgical History Date Name Laterality Status Provider Name and Address Organization Details Recorded Time section completed [facility] PA - [facility] 09/29/2022 11:41:25 Imaging [...] ) 50 mcg/actuatio n nasal spray,suspen rehan [place] 1 spray twice a day by intranasal [...] Updated DateTime 2 154.94 cm 32.1 kg/m2 76602.7 g 97.9 [degF] 18 /min 96 /min 100 % 100 % 113 mm[Hg] 72 mm[Hg] GISELL Carranza PA - [facility] 11:42:16 Social History Question Answer Notes LastModified by [employer] Details LastModified Time Tobacco Smoking Status Never [...] Functional Status Question Answer Note LastModified by [employer] Details LastModified Time Do you use any [...] SNOMED-CT Code Diagnosis ICD10 Code Diagnosis Note [id number] [place] [address] [address] 09/29/2022 08:43:44 09/29/2022 12:07:32 Streptococcal sore throat [id number] J02.0 Health Concerns Section Related Observation LastModified by Organization Detai ls LastModified Time None Recorded Concern Status LastModified by Organization Details LastModified Time None Recorded Advance Directives Directive None Recorded Payers Insurance Date Sequence Insurance Name Policy Number Policy Watts Covered Member ID Watts Member ID Guarantor Name 09/29/2022 1 [place] [facility] Karuna Knutson [id number] Karuna Zenia Notes Date Note Type Note [...] Salazar NP [address] [place], [address], [place] - [facility] 09/29/2022 19:44:22 OBGyn Episode No OBEpisode recorded.
== END 2025-04-07 10:30 | disposition home or self-care (01) ==
PROVIDERS: PCP Nurse Practitioner Family; Visit Provider Physician Assistant Medical
DX: H61.23 Impacted cerumen, bilateral (principal)

== ENCOUNTER → 2025-04-07 08:57 | Outpatient (BNVA) | payer BC, SELFPAY | PROVIDERS: PCP Nurse Practitioner Family; Visit Provider Physician Assistant Medical | DX: H61.23 Impacted cerumen, bilateral (principal) | CPT/HCPCS: 69209 ==

== ENCOUNTER 2025-04-14 09:56 | Outpatient (AMB) | payer BC, SELFPAY ==
[2025-04-14 10:30] VITALS: BP 108/72; PULSE 83; BMI 29.8
--- NOTE | 2025-04-14 10:30 | A.OFFVIS_ITS ---
Vital Signs 04/14/25 10:30 Height 5 ft 1 in Weight 157 lb 13.616 oz BMI 29.8 BP 108/72 Blood Pressure Location Lt brachial Position Sitting Pulse 83 Pulse Source Pulse Oximeter Intake Visit Reasons: f/u after echo/event monitor Allergies No Known Allergies Allergy (Verified 04/14/25 10:32) Medication List - Last Reconciled 04/14/25 by Linda Mckoy, WORD PROCESSING SPECIALIST-C carbamide peroxide 6.5% (Debrox) 5 drps otic (ears) DAILY 4 days multivitamin with iron 1 tab PO DAILY polyethylene glycol 3350 (Miralax) 17 grams PO DAILY HPI HPI f/u after echo/event monitor: Details: Karuna is a 40-year-old female with past medical history of obesity, PACs who recently underwent an echocardiogram and cardiac event monitor and now presents for follow-up. Today she reports that she continues to feel intermittent palpitations which occur randomly, last sec and resolve without treatment. She has no sustained rapid or irregular rates. No chest discomfort at rest or with activity. No shortness of breath, PND, orthopnea. No lightheadedness, presyncope, syncope. She reports good activity tolerance. [facility] Medical History No pertinent past medical history COVID-19 Surgical History History of Papanicolaou smear of cervix (~2022) H/O section Family History Mother High cholesterol Diabetes Social History Household Members: Spouse and Children Both parents involved: No Caregiver staying overnight: No Housing: Apartment Are you a primary transition of care specialist to a significant other at home: Yes Do you presently have visiting nurse or other home services: No 75 years or older and lives alone: No Alcohol intake: current Alcohol intake frequency: a few times a month Patient Tobacco Use Status: Never used Tobacco e-Cigarette/Vaping Use: Never Used Second Hand Smoke Exposure: No service: No Current occupational status: employed 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 [place] Cognitive needs: No Hearing needs: No Vision needs: Yes (wear glasses) Review of Systems Const All systems reviewed & are unremarkable except as noted in HPI and below ENT Denies dizziness Card Details: brief palpitations Denies chest pain, Denies chest pain at rest, Denies chest pain with activity, Denies rapid heart rate, Denies pedal edema, Denies edema, Denies leg edema, Denies lightheadedness, Denies palpitations, Denies dyspnea, Denies dyspnea on exertion and Denies orthopnea Resp Denies cough, Denies dyspnea and Denies dyspnea on exertion GI Denies hematochezia and Denies change in stool character Musc Denies abnormal gait, Reports limited range of motion, Reports muscle cramps, Denies muscle weakness, Denies numbness, Denies radiating pain into limb, Denies stiffness and Denies tingling Neuro Denies abnormal gait, Denies dizziness, Denies numbness and Denies tingling Endo Denies palpitations Physical Exam Vital Signs: Last Vital Signs Pulse 83 04/14/25 10:30 BP 108/72 04/14/25 10:30 BMI result Body Mass Index 29.8 Const General: cooperative, healthy appearing, comfortable and no acute distress Orientation/consciousness: patient oriented x3 Neck Neck: Yes normal visual inspection and Yes no JVD Resp Effort & Inspection: normal respiratory effort Auscultation: clear to auscultation bilaterally, no rales, no rhonchi and no wheezes Cardio Rate: regular rate Rhythm: regular rhythm Heart sounds: S1 normal heart sound present, S2 normal heart sound present, no gallops, no murmurs and no rubs Neuro General: patient oriented x3 Extrem General: Yes normal to inspection Psych Appearance: grossly normal Mental Status: mental status grossly normal Speech and movement: Normal speech and movement present Assessment & Plan Assessment & Plan (1) Palpitations: Code(s): R00.2 - Palpitations Category: Medical Plan: Reports of heart palpitations, suggestive of possible brief atrial tachycardia. She tells me her episodes last seonds and resolve without treatment. A Holter monitor was done 09/16/2024 for 3 days showing sinus rhythm with average heart rate 82, rare SVE and VE. A cardiac event monitor was done 03/07/2025 for 30 days shows sinus rhythm with average heart rate 85, rare supraventricular ectopy with burden less than 1%, very brief runs, rare ventricular ectopy with burden less than 1%. Echocardiogram done 03/07/2025 was normal study. Results reviewed with her. She is likely feeling brief atrial runs, strips reviewed and longest appears to be 5 beats. Reviewed reduction in caffeinated beverages, good hydration, getting adequate rest, exercise as tolerated. No need for medication management at this time. Cardiology follow-up p.r.n.. (2) Paroxysmal SVT (supraventricular tachycardia): Comment: holter 09/2024 Code(s): I47.10 - Supraventricular tachycardia, unspecified Category: Medical Plan: As above Plan Time spent on chart review, documentation, interview and assessment Coding Level of Care Code Est Pt Level 3 (81591) Complex EM visit Add On G2211 Diagnoses Palpitations R00.2 Paroxysmal SVT (supraventricular tachycardia) I47.10 Time Spent (min) 24
--- OUTSIDE RECORDS SUMMARY | 2025-04-14 10:33 | XMS_ITS | Data Portability ---
Author Organization [facility], [address] Address [address] [place] [address] Assessment No assessment recorded. Plan of Treatment Reminders Order Date Submit Date Provider Last Modified By Organization Details Last Modified Time Details Appointments None recorded. Lab rapid strep group A, throat [address] [facility], [address] [place] [address], [address], 11:59:28 culture, respiratory 2021 [place] [facility], [address] [place] [address], [place], [address], 10:06:25 Referral None recorded. Procedures None recorded. Surgeries None recorded. Imaging None recorded. Medication Orders amoxicillin 875 mg tablet 2021 [place] [facility]44196, [address], [place], [phone], 11:59:39 Allergy Relief (fluticason e) 50 mcg/actuati on nasal spray,suspe nsion 2021 [facility]35, [address], [place], [phone], 11:59:39 Patient TargetsNo targets recorded. Patient Instructions Encounter Date Encounter Id Patient Instructions Last Modified By Organization Details Last Modified Time 09/29/2022 [id number] sore throat: car e instructions Not available [...] undesirable side effects. Probiotics can be purchased wivj-reu-kutqpwy at your pharmacy in the form of [...] respiratory culture Final report Not Available [facility] ([facility]) [address] [facility], [place], [address], 10/04/2022 10:06:25 09/29/20 22 10/04/2022 UPPER RESPI RATOR Y CULTU RE result 1 Commen t Routi ne respi rator y anna marie Not Available [facility] ([facility]) [address] [facility], [place], [address], 10/04/2022 10:06:25 09/29/20 22 09/29/2022 rapid strep group A, throa t Unknown Analyte Normal = Negati ve Not Available [address] [place] [address], [address], 09/29/2022 11:38:45 09/29/2009/29/2022 rapid strep group A, throa t Unknown Analyte negati ve Not Available [facility] [address], [address], 09/29/2022 11:38:45 Result Notes None recorded. Problems No Known Problems Procedures Surgical History Date Name Laterality Status Provider Name and Address Organization Details Recorded Time section completed [facility] PA - [facility] 09/29/2022 [...] ) 50 mcg/actuatio n nasal spray,suspen rehan [place] 1 spray twice a day by intranasal [...] Updated DateTime 2 154.94 cm 32.1 kg/m2 21653.7 g 97.9 [degF] 18 /min 96 /min 100 % 100 % 113 mm[Hg] 72 mm[Hg] GISELL Carranza PA - [facility] 11:42:16 Social History Question Answer Notes LastModified by [employer] Details LastModified Time Tobacco Smoking Status Never [...] Functional Status Question Answer Note LastModified by [employer] Details LastModified Time Do you use any [...] SNOMED-CT Code Diagnosis ICD10 Code Diagnosis Note [id number] [place] [address] [address] 09/29/2022 08:43:44 09/29/2022 12:07:32 Streptococcal sore throat [id number] J02.0 Health Concerns Section Related Observation LastModified by Organization Detai ls LastModified Time None Recorded Concern Status LastModified by Organization Details LastModified Time None Recorded Advance Directives Directive None Recorded Payers Insurance Date Sequence Insurance Name Policy Number Policy Watts Covered Member ID Watts Member ID Guarantor Name 09/29/2022 1 [place] [facility] Karuna Knutson [id number] Karuna Zenia Notes Date Note Type Note [...] Salazar NP [address] [place], [address], [place] - [facility] 09/29/2022 19:44:22 OBGyn Episode No OBEpisode recorded.
== END 2025-04-14 11:24 | disposition home or self-care (01) ==
LOC: HO.HCS 09:57
PROVIDERS: PCP Nurse Practitioner Family; Visit Provider Nurse Practitioner Family
DX: R00.2 Palpitations (principal); I47.10 Supraventricular tachycardia, unspecified
CPT/HCPCS: 99213

== ENCOUNTER 2025-05-19 16:27 | Inpatient (IN) | payer BC, SELFPAY ==
--- NOTE | ~2025-05-19 | CT_ITS ---
CLINICAL HISTORY: LLQ abd pain, fever CT abdomen and pelvis with contrast Comparison: None provided Findings: Small hiatal hernia. The gallbladder and solid organs are within normal limits. Nonobstructing renal calculi in the lower pole of the left kidney.. Few sigmoid diverticula are present with adjacent fat stranding or inflammatory changes. Small fat and fluid containing umbilical hernia. Pelvic contents unremarkable. Normal appendix. The bones are intact. IMPRESSION: Sigmoid diverticulitis. This document has been electronically signed by: Mamadou Tate MD, PHD on 05/20/2025 00:38:15
[2025-05-19 16:45] VITALS: BP 122/71; PULSE 109; RESP 16; TEMP 36.8; O2SAT 98; BMI 30.6
--- NOTE | 2025-05-19 16:45 | ED.GENADULT ---
HPI - General Adult General Chief complaint: Abdominal Pain Stated complaint: abd pain since this morning Time Seen by Provider: 05/19/25 20:57 Source: patient Mode of arrival: ambulatory Limitations: no limitations History of Present Illness ED Provider: Dr. Stephanie Way HPI narrative: Previously healthy 40-year-old female presenting with left lower quadrant abdominal pain ongoing for the last 24 hours or so. Admits she woke with the pain yesterday and has been having continued pain today. Was at work when she began to have the chills. Last dose of Tylenol was around noon today. Describes stabbing pain in the left lower quadrant that is nonradiating. No dysuria or hematuria. No vaginal bleeding or discharge. Last menstrual cycle was about a week ago. No reported fever which did have the chills. Describes nausea but no vomiting. Decreased oral intake due to nausea. Last bowel movement was the day before yesterday which was reportedly normal. Denies hematochezia or melena. No known sick contacts or travel. No questionable food intake. No recent antibiotic use. Related Data Previous Rx's ?Medication ?Instructions ?Recorded multivitamin with iron 1 tab PO DAILY #90 tabs 08/29/24 polyethylene glycol 3350 17 17 g PO DAILY #510 grams 08/29/24 gram/dose oral powder (Miralax) carbamide peroxide 6.5 % ear drops 5 drp otic (ears) DAILY 4 days #15 04/07/25 (Debrox) mL Allergies Allergy/AdvReac Type Severity Reaction Status Date / Time No Known Allergies Allergy Verified 05/19/25 16:48 Review of Systems Review of Systems: as per HPI, full review of systems performed and negative but for the above mentioned pertinent positives and negatives. [facility] Past Medical History Medical History No pertinent past medical history COVID-19 Surgical History History of Papanicolaou smear of cervix (~2022) H/O section Family History Family History Mother High cholesterol Diabetes Social History Social History Household Members: Spouse and Children Housing: Apartment Are you a primary outdoor emergency care technician to a significant other at home: Yes Do you presently have visiting nurse or other home services: No Alcohol intake: current Alcohol intake frequency: holidays/special occasions only Patient Tobacco Use Status: Never used Tobacco Smoked in Last 30 Days: No e-Cigarette/Vaping Use: Never Used Second Hand Smoke Exposure: No Use of substances other than those prescribed or required for medical reasons: No Advance Directives: No Advance Directives Information Provided: No Do you have a plan to hurt others: No Plan Patient : No service: No Current occupational status: employed 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 SKIN: Normal skin color for ethnicity, warm, dry, no rashes noted. HEENT: Normocephalic, atraumatic, no stridor, dry mucous membranes, dentition intact, EOMI, PERRLA. NECK: Soft, supple, full ROM, midline structures nontender, no step-offs, no deformities, no lymphadenopathy. CHEST: Heart regular tachycardia, no murmurs, symmetric chest rise and fall. PULMONARY: Clear to auscultation bilaterally, diminished at the bases, no labored breathing, no wheezes/rhales/rhonchi. ABDOMINAL: Soft, nondistended, diffusely tender to palpation with voluntary guarding, positive bowel sounds in all quadrants. : Deferred. MUSCULOSKELETAL: Normal tone, full range of motion, no deformities, no peripheral edema. NEURO: Alert and oriented x3, CN II through XII intact, equal strength and sensation bilateral upper and lower extremities, no focal neurologic deficits. PSYCHIATRIC: Flat affect, fluid speech, good eye contact and appropriate demeanor. Vital Signs: Vital Signs - 24 hr 05/19/25 16:45 05/19/25 20:15 05/19/25 22:06 Temperature 98.2 F 99.0 F 100.7 F H Pulse Rate 109 H 108 H 118 H Respiratory Rate 16 16 18 Blood Pressure 122/71 110/52 L 106/67 Pulse Oximetry 98 99 100 Oxygen Delivery Method Room Air Room Air Room Air 05/19/25 22:31 05/19/25 23:56 05/20/25 00:39 Temperature 98.6 F 98.5 F Pulse Rate 114 H 97 98 Respiratory Rate 22 H 16 22 H Blood Pressure 115/78 103/64 99/60 Pulse Oximetry 100 98 98 Oxygen Delivery Method Room Air Room Air Room Air 05/20/25 00:56 Temperature Pulse Rate 98 Respiratory Rate 20 Blood Pressure 112/69 Pulse Oximetry 98 Oxygen Delivery Method Room Air BMI result Body Mass Index 30.6 Course Course Course Narrative: RME performed by Pippa Odell PA-C. Patient is a 40 year old assigned female at presenting to the emergency department with abdominal pain. Patient states starting this morning she began to have abdominal pain with nausea. Detailed physical exam and review of systems are deferred to the triage clinician. Labs ordered. Patient placed back in the waiting room pending room availability and results. Reevaluation(s) Reevaluation #1: Patient is flagging for sepsis with elevated heart rate, temperature 100.7?, white blood cell count of 15.2. Initiated fluid bolus at 30 cc/kg over an hour. We will initiate broad-spectrum antibiotics including Zosyn for potential intra-abdominal source. CT abdomen and pelvis ordered. Blood pressures stable. Time: 22:07 Reevaluation #2: I?m doing a reperfusion exam at 0145 time and found patient to be resting comfortably, oxygen saturation 98% on room air. Pain improving after Dilaudid and Toradol. Vital Sign Review: Blood pressure 105/70 map 79 Cardiopulmonary Assessment: Heart: Regular tachycardia, rate 110's, no murmurs Lungs: Clear to auscultation bilaterally Capillary Refill Evaluation: Brisk in all extremities Skin Exam color/condition: Slight pallor, no jaundice Time: 01:45 Medications Administered Discontinued Medications Generic Name Dose Route Start Last Admin Trade Name Freq PRN Reason Stop Dose Admin Acetaminophen 650 mg 05/19/25 22:07 05/19/25 22:18 Acetaminophen 325 Mg Tablet PO 05/19/25 22:08 650 mg ONCE ONE Administration Hydromorphone HCl 0.5 mg 05/20/25 00:43 05/20/25 00:57 Hydromorphone Hcl 0.5 Mg/0.5 Ml Syringe IVPUSH 05/20/25 00:44 0.5 mg ONCE ONE Administration Protocol Piperacillin Sod/Tazobactam 100 mls @ 200 mls/hr 05/19/25 22:05 05/19/25 22:55 Sod 4.5 gm/ Sodium Chloride IV 05/19/25 22:34 Infused ONCE ONE Infusion Lactated Ringer's 2,205 mls @ 2,205 mls/hr 05/19/25 22:07 05/20/25 00:39 Lr 30 ml/kg infuse over 1 hr (2205 ml) 05/19/25 23:06 Infused IV Infusion .Q1H ONE Iohexol 85 ml 05/19/25 23:03 05/19/25 23:05 Iohexol 350 Mg/Ml 100 Ml Infus..Btl IV 05/19/25 23:04 85 ml ONCE ONE Administration Ketorolac Tromethamine 15 mg 05/19/25 22:14 05/19/25 22:18 Ketorolac Tromethamine 15 Mg/Ml Vial IVPUSH 05/19/25 22:15 15 mg ONCE ONE Administration Medical Decision Making Medical Decision Making [facility] Narrative: This patient presents today with a chief complaint of abdominal pain. Differential diagnosis for this patient is broad. It includes diverticulitis, appendicitis, cholecystitis, bowel obstruction, peptic ulcer disease, pyelonephritis, vascular pathology, among many others. A broad-based workup based on history and physical examination was obtained. Clinical picture is consistent with diverticulitis, sepsis. She is responding to fluid resuscitation. Received a dose of Zosyn. Plan for admission for further care and evaluation. Patient understands and agrees with plan for admission. Case discussed with Dr. Santa, hospitalist on-call. Differential Diagnosis Differential Diagnoses: The differential diagnosis associated with the presentation includes (As above) Admission/Observation Consideration of admission/observation: Escalation of care including admission/observation considered Consult Healthcare Provider Management of the patient was discussed with: Hospitalist Lab Data [facility] Lab Attestation statement: I reviewed the patient's lab results. 05/19/25 17:13 05/19/25 17:13 Labs: Lab Results 05/19/25 05/19/25 Range/Units 17:13 22:19 WBC 15.2 H (4.8-10.8) X10*3/uL RBC 4.36 (4.20-5.50) X10*6/uL Hgb 10.9 L (12.0-16.0) g/dl Hct 33.7 L (37.0-47.0) % MCV 77.3 L (80.0-98.0) fL MCH 25.0 L (27.0-33.0) pg MCHC 32.3 (31.0-35.0) g/dl RDW 17.2 H (11.0-16.0) % Plt Count 264 (160-400) X10*3/uL MPV 11.0 (9.4-12.3) fL Immature Gran % (Auto) 0.5 H (0.0-0.4) % Neut % (Auto) 81.7 H (45-73) % Lymph % (Auto) 9.3 L (20-40) % [place] % (Auto) 7.8 (2-11) % Eos % (Auto) 0.2 (0-4) % Baso % (Auto) 0.5 (0-2) % Lymph # (Auto) 1.4 (1.2-4.9) X10*3/uL [place] # (Auto) 1.2 (0.1-1.2) X10*3/uL Eos # (Auto) 0.0 (0.0-0.4) X10*3/uL Baso # (Auto) 0.1 (0.0-0.2) X10*3/uL Abs Immat Gran (auto) 0.07 H (0.00-0.03) X10*3/uL Absolute Neuts (auto) 12.5 H (2.0-8.3) x10*3/uL Absolute Nucleated RBC 0.000 (0.0-0.012) X10*3/uL Nucleated RBC % (auto) 0.0 (0.0-0.2) /100WBC Sodium 140 (135-145) mmol/L Potassium 3.6 (3.3-5.1) mmol/L Chloride 108 (96-108) mmol/L Carbon Dioxide 26 (22-29) mmol/L Anion Gap 10 L (12-20) BUN 14 (9-16) mg/dL Creatinine 0.76 (0.5-1.4) mg/dL Estim Creat Clear Calc 92.0 Estimated GFR > 60 Random Glucose 102 (60-115) mg/dL Lactic Acid 0.9 (0.5-2.0) mmol/L Calcium 8.8 (8.4-10.2) mg/dL Magnesium 1.8 (1.6-2.6) mg/dL Total Bilirubin 0.4 (0.0-1.0) mg/dL AST 19 (5-31) U/L ALT 14 (0-31) U/L Alkaline Phosphatase 60 (39-117) U/L Total Protein 6.9 (6.5-8.0) g/dL Albumin 4.1 (3.5-5.0) g/dL Beta HCG, Quant < 2 mIU/mL Urine Color Yellow Urine Appearance Clear Urine pH 5.5 (5.0-9.0) Ur Specific [place] >= 1.030 H (1.005-1.025) Urine Protein Trace (Neg-Trace) mg/dL Urine Glucose (UA) Negative (Negative) mg/dL Urine Ketones 40 (Negative) mg/dL Urine Blood Small (1+) H (Negative) Urine Nitrite Negative (Negative) Ur Leukocyte Esterase Negative (Negative) Urine RBC 6-10 H (0-2) /HPF Urine WBC 0-5 (0-5) /HPF Ur Squamous Epith Cells 3-5 (0-2) /HPF Urine Bacteria 1+ (None Seen) Hyaline Casts 0-2 (0-2) /LPF Independent Interpretation I performed an independent interpretation of an: Rhythm Strip (Sinus tachycardia) Radiology Impression Discussion of test interpretation with radiology: I have reviewed the radiologist's reading. Radiologist Impression: CT abdomen and pelvis with contrast Comparison: None provided Findings: Small hiatal hernia. The gallbladder and solid organs are within normal limits. Nonobstructing renal calculi in the lower pole of the left kidney.. Few sigmoid diverticula are present with adjacent fat stranding or inflammatory changes. Small fat and fluid containing umbilical hernia. Pelvic contents unremarkable. Normal appendix. The bones are intact. IMPRESSION: Sigmoid diverticulitis. This document has been electronically signed by: Mamadou Tate MD, PHD on 05/20/2025 00:38:15 Critical Care Time Critical Care Time Total Critical Care Time: 38 Attestation: CRITICAL CARE TIME: 38 minutes of critical care time was spent in direct patient care at the bedside or in the immediate area with this patient. Critical care was necessary to treat or prevent imminent or life-threatening deterioration of the following conditions sepsis due to diverticulitis. This patient is high risk for decompensation and/or . This time was spent assessing and managing the patient, interpreting labs and imaging, coordinating care with other medical providers, gathering history from either the patient, their representatives, EMS or chart review, and discussing management with hospitalist team. Discharge Plan Discharge Patient Disposition: Admitted As Inpatient Print Language: [place]
[2025-05-19 17:17] LABS: MANUAL DIFF FLAG NO
[2025-05-19 17:19] LABS: Hematocrit 33.7 % (37.0-47.0); Hemoglobin 10.9 g/dl (12.0-16.0); Imm Gran Abs Auto 0.07 X10*3/uL (0.00-0.03); Imm Gran Pct Auto 0.5 % (0.0-0.4); Lymphocytes Absolute Auto 1.4 X10*3/uL (1.2-4.9); Mean Corpuscular HGB Conc 32.3 g/dl (31.0-35.0); Mean Corpuscular Hemoglobin 25.0 pg (27.0-33.0); Mean Corpuscular Volume 77.3 fL (80.0-98.0); NRBC Abs Auto 0.000 X10*3/uL (0.0-0.012); NRBC Pct Auto 0.0 /100WBC (0.0-0.2); Platelet Count 264 X10*3/uL (160-400); Red Blood Count 4.36 X10*6/uL (4.20-5.50); White Blood Count 15.2 X10*3/uL (4.8-10.8)
[2025-05-19 17:21] LABS: Appearance Urine Clear; Glucose Urine UA Negative (Negative); PH 5.5 (5.0-9.0); Specific Gravity - Urine >= 1.030 (1.005-1.025); UMIC TRIGGER UACC YES
[2025-05-19 17:41] LABS: Alanine Aminotransferase 14 U/L (0-31); Albumin Level 4.1 g/dL (3.5-5.0); Alkaline Phosphatase 60 U/L (39-117); Anion Gap 10 (12-20); Aspartate Amino Transferase 19 U/L (5-31); Blood Urea Nitrogen 14 mg/dL (9-16); Calcium 8.8 mg/dL (8.4-10.2); Carbon Dioxide 26 mmol/L (22-29); Chloride 108 mmol/L (96-108); Creatinine Clr Calc Pharmacy 92.0; Estimated Glomerular Filt Rate > 60; Magnesium 1.8 mg/dL (1.6-2.6); Potassium 3.6 mmol/L (3.3-5.1); Sodium 140 mmol/L (135-145); Total Protein 6.9 g/dL (6.5-8.0)
[2025-05-19 20:15] VITALS: BP 110/52; PULSE 108; RESP 16; TEMP 37.2; O2SAT 99
[2025-05-19 22:06] VITALS: BP 106/67; PULSE 118; RESP 18; TEMP 38.2; O2SAT 100
[2025-05-19] MEDS: LACTATED RINGERS 2205 ML IV (22:18)
[2025-05-19 22:31] VITALS: BP 115/78; PULSE 114; RESP 22; O2SAT 100
--- NOTE | 2025-05-19 22:38 | PC.NURSE ---
t/w notified by tech pt temp 100.7 and tachy 110's. pt also has elevated wbc 15. notified. IV line #20 L-AC, blood cultures and lactic drawn, pt medicated per MAR and IV fluids running at this time.
[2025-05-19] MEDS: iohexoL 350 MG/ML 100 ML INFUS..BTL 85 ML IV (23:05)
[2025-05-19 23:56] VITALS: BP 103/64; PULSE 97; RESP 16; TEMP 37; O2SAT 98
--- NOTE | 2025-05-19 23:56 | PC.NURSE ---
assumed care of patient at this time, resting with spouse at bedside
[2025-05-20] VITALS (8 sets, daily range): BP systolic 99–127; BP diastolic 60–74; PULSE 84–106; RESP 12–22; TEMP 36.5–37.3; O2SAT 96–99; BMI 31.4
--- NOTE | 2025-05-20 03:55 | P.HPHOSP_ITS ---
History of Present Illness Date of Service: 05/20/25 Chief Complaint: Abdominal pain This has a 40-year-old female with no pertinent past medical history and not on prescription medications who presents to the emergency department for evaluation of abdominal pain. Patient states she woke up with left lower quadrant pain that was constant, nonradiating and without any relieving factors. Also had associated chills and nausea. No history of similar pain in the past. Does occasionally have constipation. Patient tried Tylenol for pain but it was without any relief. No chest pain, palpitations, shortness of breath, changes in urinary habits. In the emergency department, patient was found to be septic and imaging concerning for sigmoid diverticulitis. Review of Systems 2 Constitutional: Constitutional: Reports fatigue and Reports poor appetite Cardiovascular: Cardiovascular: Reports no additional cardiovascular complaints Respiratory: Respiratory: Reports no additional respiratory complaints Gastrointestinal: Gastrointestinal: Reports abdominal pain and Reports nausea Genitourinary: Genitourinary: Reports no additional female genitourinary complaints Endocrine: Endocrine: Reports fatigue [facility] Medical History No pertinent past medical history COVID-19 Family History Mother High cholesterol Diabetes Surgical History History of Papanicolaou smear of cervix (~2022) H/O section Social History Household Members: Spouse and Children Housing: Apartment 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 you 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 day care center 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 to a significant other at home: Yes Do you presently have visiting nurse or other home services: No Alcohol intake: current Alcohol intake frequency: holidays/special occasions only Patient Tobacco Use Status: Never used Tobacco Smoked in Last 30 Days: No e-Cigarette/Vaping Use: Never Used Second Hand Smoke Exposure: No Use of substances other than those prescribed or required for medical reasons: No Advance Directives: No Advance Directives Information Provided: No Do you have a plan to hurt others: No Plan Patient : No service: No Current occupational status: employed 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 [employer] Cognitive needs: No Hearing needs: No Vision needs: Yes (wear glasses) Meds Allergies Allergy/AdvReac Type Severity Reaction Status Date / Time No Known Allergies Allergy Verified 05/19/25 16:48 Active Medications: Current Medications Acetaminophen (Acetaminophen 325 Mg Tablet) 650 mg PO Q6H PRN PRN Reason: Pain, Mild 1-3,fever,headache Calcium Carbonate (Calcium Carbonate 750 Mg Tab.Chew) 750 mg PO Q4H PRN PRN Reason: Heartburn Enoxaparin Sodium (Enoxaparin Sodium 40 Mg/0.4 Ml Syringe) 40 mg SUBCUT Q24H [facility] Last Admin: 05/20/25 02:40 Dose: 40 mg Hydromorphone HCl (Hydromorphone Hcl 1 Mg/Ml Syringe) 0.5 mg IVPUSH Q4H PRN; Protocol PRN Reason: Pain, Severe (Pain Scale 7-10) Magnesium Hydroxide (Milk Of Magnesia 30 Ml Oral.Susp) 30 ml PO DAILY PRN PRN Reason: Constipation Melatonin (Melatonin 3 Mg Tablet) 6 mg PO BEDTIME PRN PRN Reason: Insomnia Ondansetron HCl (Ondansetron Hcl 4 Mg/2 Ml Vial) 4 mg IVPUSH Q8H PRN PRN Reason: Nausea and Vomiting Sodium Chloride (0.9 % Sodium Chloride Flush 3 Ml Syringe) 3 ml IVFLUSH QSHIFT [facility] Physical Exam 2 Vital Signs and Narrative: Vital Signs: Last Vital Signs Temp 98.3 F 05/20/25 02:34 Pulse 84 05/20/25 02:34 Resp 16 05/20/25 02:34 BP 103/64 05/20/25 02:34 Pulse Ox 97 05/20/25 02:34 O2 Del Method Room Air 05/20/25 02:34 BMI result Body Mass Index 30.6 Const: Other: Middle-aged female lying in bed in no distress Neck supple, no JVD Regular rate and rhythm, S1-S2 heard Regular breath sounds bilaterally, no wheezing or crackles appreciated Abdomen with left lower quadrant tenderness, no rigidity Patient is awake, alert and oriented to self, place, time and person ; no focal motor deficit Psych: Normal mood No pedal edema Results Labs 05/19/25 17:13 05/19/25 17:13 Labs: Laboratory Results - last 24 hr 05/19/25 05/19/25 17:13 22:19 MCV 77.3 L MCH 25.0 L MCHC 32.3 RDW 17.2 H Plt Count 264 MPV 11.0 Immature Gran % (Auto) 0.5 H Neut % (Auto) 81.7 H Lymph % (Auto) 9.3 L [place] % (Auto) 7.8 Eos % (Auto) 0.2 Baso % (Auto) 0.5 Lymph # (Auto) 1.4 [place] # (Auto) 1.2 Eos # (Auto) 0.0 Baso # (Auto) 0.1 Abs Immat Gran (auto) 0.07 H Absolute Neuts (auto) 12.5 H Absolute Nucleated RBC 0.000 Nucleated RBC % (auto) 0.0 Anion Gap 10 L Estim Creat Clear Calc 92.0 Estimated GFR > 60 Random Glucose 102 Lactic Acid 0.9 Calcium 8.8 Magnesium 1.8 Total Bilirubin 0.4 AST 19 ALT 14 Alkaline Phosphatase 60 Total Protein 6.9 Albumin 4.1 Beta HCG, Quant < 2 Urine Color Yellow Urine Appearance Clear Urine pH 5.5 Ur Specific [place] >= 1.030 H Urine Protein Trace Urine Glucose (UA) Negative Urine Ketones 40 Urine Blood Small (1+) H Urine Nitrite Negative Ur Leukocyte Esterase Negative Urine RBC 6-10 H Urine WBC 0-5 Ur Squamous Epith Cells 3-5 Urine Bacteria 1+ Hyaline Casts 0-2 Assessment and Plan (1) Diverticulitis of sigmoid colon: Status: Acute Plan This has a 40-year-old female with no pertinent past medical history and not on prescription medications who presents to the emergency department for evaluation of abdominal pain. #. Sepsis due to acute sigmoid diverticulitis: Will admit patient with IV Zosyn. NPO for bowel rest. Resuscitating with IV crystalloids. Will need outpatient GI follow-up in 6-8 weeks. Lactic acid and blood culture obtained DVT prophylaxis: Lovenox Full code Admit as inpatient and will require two night minimum hospital stay for IV antibiotics (as above), which is not possible in a lesser acute setting. Quality Stroke Does the patient have a stroke diagnosis?: No VTE Prior VTE?: No VTE Risk Level:: Medical - moderate - high VTE Device Contraindication: Treatment Not Indicated VTE Drug Contraindication: N/A - Med Ordered
[2025-05-20] MEDS: Lactated Ringers 1,000 ML 100 ML IVCONT ×2 (04:14→15:36)
[2025-05-20 05:29] LABS: MANUAL DIFF FLAG NO
[2025-05-20 05:30] LABS: Hematocrit 29.7 % (37.0-47.0); Hemoglobin 9.8 g/dl (12.0-16.0); Imm Gran Abs Auto 0.06 X10*3/uL (0.00-0.03); Imm Gran Pct Auto 0.4 % (0.0-0.4); Lymphocytes Absolute Auto 2.1 X10*3/uL (1.2-4.9); Mean Corpuscular HGB Conc 33.0 g/dl (31.0-35.0); Mean Corpuscular Hemoglobin 25.1 pg (27.0-33.0); Mean Corpuscular Volume 76.0 fL (80.0-98.0); NRBC Abs Auto 0.000 X10*3/uL (0.0-0.012); NRBC Pct Auto 0.0 /100WBC (0.0-0.2); Platelet Count 241 X10*3/uL (160-400); Red Blood Count 3.91 X10*6/uL (4.20-5.50); White Blood Count 14.6 X10*3/uL (4.8-10.8)
[2025-05-20 05:47] LABS: Anion Gap 10 (12-20); Blood Urea Nitrogen 8 mg/dL (9-16); Calcium 8.0 mg/dL (8.4-10.2); Carbon Dioxide 22 mmol/L (22-29); Chloride 111 mmol/L (96-108); Creatinine Clr Calc Pharmacy 107.5; Estimated Glomerular Filt Rate > 60; Potassium 3.6 mmol/L (3.3-5.1); Sodium 139 mmol/L (135-145)
--- NOTE | 2025-05-20 08:01 | PHA.MEDREC ---
Addendum entered by Hayley Franco RPh 05/20/25 08:16: Reviewed by [facility] Original Note: Pharmacy Consult ? Medication Reconciliation Pharmacy has completed the medication reconciliation. Spoke with pt and she states she is not taking any medications at this time. Pt prescribed a Multivitamin in March for 90 days; pt states she stopped taking it a while ago .
--- NOTE | 2025-05-20 11:33 | PM.EVENT ---
Event Note Date of Service: 05/20/25 Event Note: Seen/examined 40-year-old female with no pertinent past medical history and not on prescription medications who presents to the emergency department for evaluation of abdominal pain and found to have acute diverticulitis, first episode, not tolerating PO and admitted for IV Abx, met sepsis criteria Plan: IV Zosyn, at discharge change to Augmentin, Outpatient GI follow up. Start liquid diet. Dilaudid for pain DVT prophylaxis: Lovenox Full code Time Spent With Patient Time: Total time managing care of this patient today ____ minutes.
[2025-05-20] MEDS: 0.9 % Sodium Chloride Flush 3 ML SYRINGE IVFLUSH (21:22)
--- NOTE | 2025-05-20 23:03 | PC.NURSE ---
Ok for pt to have ice chips per Dr. Santa.
[2025-05-21] MEDS: Lactated Ringers 1,000 ML 100 ML IVCONT ×3 (01:25→21:27)
[2025-05-21 03:51] VITALS: BP 122/65; PULSE 104; RESP 18; TEMP 37; O2SAT 97
[2025-05-21 06:45] LABS: Hematocrit 31.7 % (37.0-47.0); Hemoglobin 10.0 g/dl (12.0-16.0); Mean Corpuscular HGB Conc 31.5 g/dl (31.0-35.0); Mean Corpuscular Hemoglobin 24.6 pg (27.0-33.0); Mean Corpuscular Volume 78.1 fL (80.0-98.0); NRBC Abs Auto 0.000 X10*3/uL (0.0-0.012); NRBC Pct Auto 0.0 /100WBC (0.0-0.2); Platelet Count 266 X10*3/uL (160-400); Red Blood Count 4.06 X10*6/uL (4.20-5.50); White Blood Count 14.5 X10*3/uL (4.8-10.8)
[2025-05-21 06:57] VITALS: BP 104/60; PULSE 90; RESP 16; TEMP 36.4; O2SAT 98
[2025-05-21 07:14] LABS: Glucose, Whole Blood 71 mg/dL (60-115)
[2025-05-21 07:22] LABS: Anion Gap 16 (12-20); Blood Urea Nitrogen 10 mg/dL (9-16); Calcium 8.1 mg/dL (8.4-10.2); Carbon Dioxide 17 mmol/L (22-29); Chloride 110 mmol/L (96-108); Creatinine Clr Calc Pharmacy 104.1; Estimated Glomerular Filt Rate > 60; Potassium 3.7 mmol/L (3.3-5.1); Sodium 139 mmol/L (135-145)
--- NOTE | 2025-05-21 11:34 | MHC.CM.PN ---
pt is indepdent has a ride will not need services when dcd
--- NOTE | 2025-05-21 13:08 | P.PNIM_ITS ---
Subjective Subjective Date of Service: 05/21/25 Interval History: The patient reports some improvement of pain overnight, without any new or concerning complaints of note. She endorses thirst and urge to eat. The patient reports that she feels overall better than prior. Review of Systems Review of Systems: Yes all other systems are reviewed and are negative Constitutional Constitutional: Reports as per HPI ENT Ears, Nose, Mouth, and Throat: Denies dysphagia Cardiovascular Cardiovascular: Reports as per HPI and Reports no additional cardiovascular complaints Respiratory Respiratory: Reports as per HPI and Reports no additional respiratory complaints Gastrointestinal Gastrointestinal: Reports as per HPI, Reports abdominal pain (improving, still present), Reports belching, Denies melena, Denies bloating, Denies hematochezia, Denies change in stool character, Reports constipation, Denies dysphagia, Denies excessive flatus, Denies heartburn, Denies fecal incontinence, Denies nausea and Denies vomiting Genitourinary Genitourinary: Reports no additional female genitourinary complaints and Reports as per HPI Psychiatric Psychiatric: Reports no additional psychiatric complaints and Reports as per HPI Physical Exam 2 Exam: Exam: General: A&O x3, oriented to time place person and siutaion, comfortable, no pain Cardiac: S1, S2 auscultated with no S3/4, no MRG. Well perfused. Radial pulses strong and rate regular. Respiratory: Normal breath sounds auscultated throughout all lung zones, without wheezing, rales. Normal rate. GI/ : Abdominal pain on palpation of the LLQ, without rebound or guarding. The patient has no palpable masses. Bowel sounds present. MSK: Normal ambulation without pain at bony prominences or musculature Neurological: Normal neurological examination on overview, without obvious CN II-XII abnormalities. Vital Signs: Vital Signs: Last Vital Signs Temp 97.6 F 05/21/25 06:57 Pulse 90 05/21/25 06:57 Resp 16 05/21/25 06:57 BP 104/60 05/21/25 06:57 Pulse Ox 98 05/21/25 06:57 O2 Del Method Room Air 05/21/25 06:57 BMI result Body Mass Index 31.4 Objective Data Active Medications Acetaminophen (Acetaminophen 325 Mg Tablet) 650 mg PO Q6H PRN PRN Reason: Pain, Mild 1-3,fever,headache Calcium Carbonate (Calcium Carbonate 750 Mg Tab.Chew) 750 mg PO Q4H PRN PRN Reason: Heartburn Enoxaparin Sodium (Enoxaparin Sodium 40 Mg/0.4 Ml Syringe) 40 mg SUBCUT Q24H [facility] Last Admin: 05/21/25 03:17 Dose: 40 mg Documented By: DARELL Hydromorphone HCl (Hydromorphone Hcl 1 Mg/Ml Syringe) 0.5 mg IVPUSH Q4H PRN; Protocol PRN Reason: Pain, Severe (Pain Scale 7-10) Last Admin: 05/21/25 05:41 Dose: 0.5 mg Documented By: DARELL Piperacillin Sod/Tazobactam (Sod 4.5 gm/ Sodium Chloride) 100 mls @ 200 mls/hr IV Q6H [facility] Last Infusion: 05/21/25 10:15 Dose: Infused Documented By: SHANTELL Lactated Ringer's (Lr) 1,000 mls @ 100 mls/hr IVCONT .Q10H [facility] Last Admin: 05/21/25 11:24 Dose: 100 mls/hr Documented By: SHAWNA Magnesium Hydroxide (Milk Of Magnesia 30 Ml Oral.Susp) 30 ml PO DAILY PRN PRN Reason: Constipation Melatonin (Melatonin 3 Mg Tablet) 6 mg PO BEDTIME PRN PRN Reason: Insomnia Ondansetron HCl (Ondansetron Hcl 4 Mg/2 Ml Vial) 4 mg IVPUSH Q8H PRN PRN Reason: Nausea and Vomiting Last Admin: 05/21/25 05:41 Dose: 4 mg Documented By: DARELL Sodium Chloride (0.9 % Sodium Chloride Flush 3 Ml Syringe) 3 ml IVFLUSH QSHIFT [facility] Last Admin: 05/21/25 07:50 Dose: Not Given Documented By: SHANTELL Non-Admin Reason: IV Running Labs 05/21/25 05:04 05/21/25 05:04 Labs: Laboratory Results - last 24 hr 05/21/25 05/21/25 05:04 07:07 MCV 78.1 L MCH 24.6 L MCHC 31.5 RDW 17.8 H Plt Count 266 MPV 11.5 Absolute Nucleated RBC 0.000 Nucleated RBC % (auto) 0.0 Anion Gap 16 Estim Creat Clear Calc 104.1 Estimated GFR > 60 POC Glucose 71 Random Glucose 59 L* Calcium 8.1 L Microbiology Microbiology Results: Microbiology 05/19/25 22:19 Blood Culture - Preliminary Blood - Venous No growth after 24 hours. 05/19/25 22:19 Blood Culture - Preliminary Blood - Venous No growth after 24 hours. Assessment and Plan (1) Sepsis: Start date: 05/20/25 Status: Acute Assessment and Plan: Improving. Currently on Zosyn for management. CT-AP reveals no abscess, but does reveal presence of diverticulitis, uncomplicated. PLAN - Transition from IV Zosyn to Augmentin - Monitor pain - Monitor bowel movements - Monitor I/O - Monitor Lab work tomorrow (2) Diverticulitis of sigmoid colon: Status: Acute Assessment and Plan: Improving. Currently on Zosyn for management. CT-AP reveals no abscess, but does reveal presence of diverticulitis, uncomplicated. PLAN - Transition from IV Zosyn to Augmentin - Monitor pain - Monitor bowel movements - Monitor I/O - Monitor Lab work tomorrow (3) Chronic constipation: Status: Acute Assessment and Plan: Chronic medical complaint, but likely contributory to precipitance of current medical presentation. PLAN - Encourage PO hydration - Miralax post resolution of diverticulitis (4) Mild anemia: Status: Acute Assessment and Plan: Chronic medical issue likely secondary to menstrual bleeding. Stable and Hgb/ RBCs being monitored. FU in outatient setting Total time managing care of this patient today: 30 minutes. Quality Stroke Does the patient have a stroke diagnosis?: No VTE Prior VTE?: No VTE Risk Level:: Medical - moderate - high VTE Device Contraindication: Treatment Not Indicated VTE Drug Contraindication: N/A - Med Ordered
[2025-05-21 14:56] VITALS: BP 107/53; PULSE 77; RESP 17; TEMP 36.6; O2SAT 99
[2025-05-21 19:14] VITALS: BP 118/68; PULSE 75; RESP 18; TEMP 36.4; O2SAT 99
[2025-05-22 03:15] VITALS: BP 118/71; PULSE 86; RESP 18; TEMP 36.8; O2SAT 97
[2025-05-22 05:52] LABS: MANUAL DIFF FLAG NO
[2025-05-22 06:04] LABS: Hematocrit 28.6 % (37.0-47.0); Hemoglobin 9.3 g/dl (12.0-16.0); Imm Gran Abs Auto 0.05 X10*3/uL (0.00-0.03); Imm Gran Pct Auto 0.5 % (0.0-0.4); Lymphocytes Absolute Auto 1.3 X10*3/uL (1.2-4.9); Mean Corpuscular HGB Conc 32.5 g/dl (31.0-35.0); Mean Corpuscular Hemoglobin 24.8 pg (27.0-33.0); Mean Corpuscular Volume 76.3 fL (80.0-98.0); NRBC Abs Auto 0.000 X10*3/uL (0.0-0.012); NRBC Pct Auto 0.0 /100WBC (0.0-0.2); Platelet Count 240 X10*3/uL (160-400); Red Blood Count 3.75 X10*6/uL (4.20-5.50); White Blood Count 10.2 X10*3/uL (4.8-10.8)
[2025-05-22 06:21] LABS: Alanine Aminotransferase 45 U/L (0-31); Albumin Level 3.0 g/dL (3.5-5.0); Alkaline Phosphatase 56 U/L (39-117); Anion Gap 9 (12-20); Aspartate Amino Transferase 30 U/L (5-31); Blood Urea Nitrogen 5 mg/dL (9-16); Calcium 8.0 mg/dL (8.4-10.2); Carbon Dioxide 25 mmol/L (22-29); Chloride 108 mmol/L (96-108); Creatinine Clr Calc Pharmacy 114.2; Estimated Glomerular Filt Rate > 60; Potassium 3.6 mmol/L (3.3-5.1); Sodium 138 mmol/L (135-145); Total Protein 5.6 g/dL (6.5-8.0)
[2025-05-22 06:47] VITALS: BP 117/80; PULSE 98; RESP 16; TEMP 36.6; O2SAT 98
[2025-05-22] MEDS: Lactated Ringers 1,000 ML 100 ML IVCONT ×2 (11:28→22:00)
--- NOTE | 2025-05-22 14:17 | P.PNIM_ITS ---
Subjective Subjective Date of Service: 05/22/25 Interval History: The patient reports some improvement of pain overnight, without any new or concerning complaints of note. She endorses thirst and urge to eat. The patient reports that she feels overall better than prior. Review of Systems as per HPI, full review of systems performed and negative but for the above mentioned pertinent positives and negatives. Constitutional Constitutional: Reports as per HPI, Reports fatigue and Reports poor appetite ENT Ears, Nose, Mouth, and Throat: Denies dysphagia Cardiovascular Cardiovascular: Reports as per HPI and Reports no additional cardiovascular complaints Respiratory Respiratory: Reports as per HPI and Reports no additional respiratory complaints Gastrointestinal Gastrointestinal: Reports as per HPI, Reports abdominal pain (improving, still present), Reports belching, Denies melena, Denies bloating, Denies hematochezia, Denies change in stool character, Reports constipation, Denies dysphagia, Denies excessive flatus, Denies heartburn, Denies fecal incontinence, Denies nausea and Denies vomiting Psychiatric Psychiatric: Reports no additional psychiatric complaints and Reports as per HPI Endocrine Endocrine: Reports fatigue Physical Exam 2 Vital Signs: Vital Signs: Last Vital Signs Temp 97.9 F 05/22/25 06:47 Pulse 98 05/22/25 06:47 Resp 16 05/22/25 06:47 BP 117/80 05/22/25 06:47 Pulse Ox 98 05/22/25 06:47 O2 Del Method Room Air 05/22/25 06:47 BMI result Body Mass Index 31.4 Const: Other: Middle-aged female lying in bed in no distress Neck supple, no JVD Regular rate and rhythm, S1-S2 heard Regular breath sounds bilaterally, no wheezing or crackles appreciated Abdomen with left lower quadrant tenderness, no rigidity Patient is awake, alert and oriented to self, place, time and person ; no focal motor deficit Psych: Normal mood No pedal edema Objective Data Active Medications Acetaminophen (Acetaminophen 325 Mg Tablet) 650 mg PO Q6H PRN PRN Reason: Pain, Mild 1-3,fever,headache Last Admin: 05/22/25 09:22 Dose: 650 mg Documented By: ESVIN Calcium Carbonate (Calcium Carbonate 750 Mg Tab.Chew) 750 mg PO Q4H PRN PRN Reason: Heartburn Last Admin: 05/22/25 09:14 Dose: 750 mg Documented By: SEVIN Enoxaparin Sodium (Enoxaparin Sodium 40 Mg/0.4 Ml Syringe) 40 mg SUBCUT Q24H [facility] Last Admin: 05/22/25 03:10 Dose: 40 mg Documented By: DARELL Hydromorphone HCl (Hydromorphone Hcl 1 Mg/Ml Syringe) 0.5 mg IVPUSH Q4H PRN; Protocol PRN Reason: Pain, Severe (Pain Scale 7-10) Last Admin: 05/21/25 19:18 Dose: 0.5 mg Documented By: DARELL Piperacillin Sod/Tazobactam (Sod 4.5 gm/ Sodium Chloride) 100 mls @ 200 mls/hr IV Q6H [facility] Last Infusion: 05/22/25 10:03 Dose: Infused Documented By: ESVIN Lactated Ringer's (Lr) 1,000 mls @ 100 mls/hr IVCONT .Q10H [facility] Last Admin: 05/22/25 11:28 Dose: 100 mls/hr Documented By: ESVIN Magnesium Hydroxide (Milk Of Magnesia 30 Ml Oral.Susp) 30 ml PO DAILY PRN PRN Reason: Constipation Melatonin (Melatonin 3 Mg Tablet) 6 mg PO BEDTIME PRN PRN Reason: Insomnia Last Admin: 05/21/25 20:28 Dose: 6 mg Documented By: DARELL Omeprazole (Omeprazole 40 Mg Capsule.Dr) 40 mg PO DAILY@0630 [facility] Last Admin: 05/22/25 11:28 Dose: 40 mg Documented By: ESVIN Ondansetron HCl (Ondansetron Hcl 4 Mg/2 Ml Vial) 4 mg IVPUSH Q8H PRN PRN Reason: Nausea and Vomiting Last Admin: 05/22/25 03:55 Dose: 4 mg Documented By: DARELL Polyethylene Glycol (Polyethylene Glycol 3350 17 Gm Powd.Pack) 17 gm PO DAILY [facility] Last Admin: 05/22/25 11:28 Dose: 17 gm Documented By: ESVIN Sodium Chloride (0.9 % Sodium Chloride Flush 3 Ml Syringe) 3 ml IVFLUSH QSHIFT [facility] Last Admin: 05/22/25 09:03 Dose: Not Given Documented By: ESVIN Non-Admin Reason: IV Running Labs 05/22/25 05:22 05/22/25 05:22 Labs: Laboratory Results - last 24 hr 05/22/25 05:22 MCV 76.3 L MCH 24.8 L MCHC 32.5 RDW 17.9 H Plt Count 240 MPV 10.9 Immature Gran % (Auto) 0.5 H Neut % (Auto) 77.9 H Lymph % (Auto) 12.[address] [facility] % (Auto) 7.7 Eos % (Auto) 0.7 Baso % (Auto) 0.4 Lymph # (Auto) 1.3 [facility] # (Auto) 0.8 Eos # (Auto) 0.1 Baso # (Auto) 0.0 Abs Immat Gran (auto) 0.05 H Absolute Neuts (auto) 8.0 Absolute Nucleated RBC 0.000 Nucleated RBC % (auto) 0.0 Anion Gap 9 L Estim Creat Clear Calc 114.2 Estimated GFR > 60 Random Glucose 74 Calcium 8.0 L Total Bilirubin 0.5 AST 30 ALT 45 H Alkaline Phosphatase 56 Total Protein 5.6 L Albumin 3.0 L Microbiology Microbiology Results: Microbiology 05/19/25 22:19 Blood Culture - Preliminary Blood - Venous No growth after 48 hours. 05/19/25 22:19 Blood Culture - Preliminary Blood - Venous No growth after 48 hours. Assessment and Plan (1) Sepsis: Status: Acute Assessment and Plan: Improving. Currently on Zosyn for management. CT-AP reveals no abscess, but does reveal presence of diverticulitis, uncomplicated. PLAN - Continue PO Augmentin - Monitor pain - Monitor bowel movements - Monitor I/O - Monitor Lab work tomorrow (2) Diverticulitis of sigmoid colon: Status: Acute Assessment and Plan: Improving. Currently on Augmentin for management. CT-AP reveals no abscess, but does reveal presence of diverticulitis, uncomplicated. PLAN - Continue PO Augmentin - Monitor pain - Monitor bowel movements - Monitor I/O - Monitor Lab work tomorrow (3) Chronic constipation: Status: Acute Assessment and Plan: Chronic medical complaint, but likely contributory to precipitance of current medical presentation. PLAN - Encourage PO hydration - Miralax post resolution of diverticulitis (4) Mild anemia: Status: Acute Assessment and Plan: Chronic medical issue likely secondary to menstrual bleeding. Stable and Hgb/ RBCs being monitored. FU in outatient setting Quality Stroke Does the patient have a stroke diagnosis?: No VTE Prior VTE?: No VTE Risk Level:: Medical - moderate - high VTE Device Contraindication: Treatment Not Indicated VTE Drug Contraindication: N/A - Med Ordered
[2025-05-22 15:24] VITALS: BP 110/61; PULSE 79; RESP 18; TEMP 37.2; O2SAT 97
[2025-05-22 19:39] VITALS: BP 120/78; PULSE 76; RESP 18; TEMP 36.9; O2SAT 99
[2025-05-22] MEDS: 0.9 % Sodium Chloride Flush 3 ML SYRINGE IVFLUSH (19:56)
[2025-05-23 03:12] VITALS: BP 115/64; PULSE 78; RESP 18; TEMP 36.8; O2SAT 97
[2025-05-23 07:11] LABS: Anion Gap 13 (12-20); Blood Urea Nitrogen 5 mg/dL (9-16); Calcium 8.0 mg/dL (8.4-10.2); Carbon Dioxide 22 mmol/L (22-29); Chloride 107 mmol/L (96-108); Creatinine Clr Calc Pharmacy 118.1; Estimated Glomerular Filt Rate > 60; Potassium 3.2 mmol/L (3.3-5.1); Sodium 139 mmol/L (135-145)
[2025-05-23 07:39] LABS: Glucose, Whole Blood 42 mg/dL (60-115)
[2025-05-23 08:00] VITALS: BP 100/58; PULSE 86; RESP 16; TEMP 36.9; O2SAT 95
[2025-05-23 08:03] LABS: Glucose, Whole Blood 78 mg/dL (60-115)
[2025-05-23] MEDS: Lactated Ringers 1,000 ML 100 ML IVCONT ×2 (08:39→18:06)
--- NOTE | 2025-05-23 10:15 | MHC.CM.PN ---
PER MD ROUNDS, PT NOT MEDICALLY CLEAR, C/O PAIN, ADVANCING DIET DCP: HOME NO SERVICES VIA PRIVATE TRANSPORT
--- NOTE | 2025-05-23 10:47 | PC.NURSE ---
Priority message 7:26 for random glucose at 50, POC checked 7:30 shoed 42. MD alerted per priority message. Pt received 2 cartons of OJ and 2 packets sugar. Recheck POC at 8:15 results 78. MD alerted. PT NOT diabetic.
[2025-05-23 11:32] LABS: Glucose, Whole Blood 74 mg/dL (60-115)
--- NOTE | 2025-05-23 12:30 | HO.PM.IMPN ---
Subjective Subjective Date of Service: 05/23/25 Interval History: No new changes. Feels better this morning than yesterday. Patient considering discharge and home management. Discussed this is a possibility only if she is able to intake appropriate amount of fluid and food. Will monitor closely and tentatively plan for DC tomorrow. Review of Systems Review of Systems: Yes all other systems are reviewed and are negative Physical Exam Vital Signs: Vital Signs: Last Vital Signs Temp 98.5 F 05/23/25 08:00 Pulse 86 05/23/25 08:00 Resp 16 05/23/25 08:00 BP 100/58 L 05/23/25 08:00 Pulse Ox 95 05/23/25 08:00 O2 Del Method Room Air 05/23/25 08:00 BMI result Body Mass Index 31.4 Const: Other: Middle-aged female lying in bed in no distress Neck supple, no JVD Regular rate and rhythm, S1-S2 heard Regular breath sounds bilaterally, no wheezing or crackles appreciated Abdomen with left lower quadrant tenderness, no rigidity Patient is awake, alert and oriented to self, place, time and person ; no focal motor deficit Psych: Normal mood No pedal edema Objective Data Active Medications Acetaminophen (Acetaminophen 325 Mg Tablet) 650 mg PO Q6H PRN PRN Reason: Pain, Mild 1-3,fever,headache Last Admin: 05/22/25 19:29 Dose: 650 mg Documented By: DARELL Amoxicillin/Clavulanate Potassium (Amoxicillin/Potassium Clav 500 Mg Tablet) 500 mg PO Q12H [facility] Last Admin: 05/23/25 05:38 Dose: 500 mg Documented By: DARELL Calcium Carbonate (Calcium Carbonate 750 Mg Tab.Chew) 750 mg PO Q4H PRN PRN Reason: Heartburn Last Admin: 05/22/25 09:14 Dose: 750 mg Documented By: ESVIN Dextrose (Dextrose 50 % 25 Gm/50 Ml Syringe) 25 gm IVPUSH Q15M PRN; Protocol PRN Reason: per Hypoglycemia Standing Ord. Enoxaparin Sodium (Enoxaparin Sodium 40 Mg/0.4 Ml Syringe) 40 mg SUBCUT Q24H [facility] Last Admin: 05/23/25 03:25 Dose: 40 mg Documented By: DARELL Glucose (Glucose Gel 15 Gm Gel..Gram.) 15 gm PO Q15M PRN; Protocol PRN Reason: per Hypoglycemia Standing Ord. Hydromorphone HCl (Hydromorphone Hcl 1 Mg/Ml Syringe) 0.5 mg IVPUSH Q4H PRN; Protocol PRN Reason: Pain, Severe (Pain Scale 7-10) Last Admin: 05/21/25 19:18 Dose: 0.5 mg Documented By: DARELL Lactated Ringer's (Lr) 1,000 mls @ 100 mls/hr IVCONT .Q10H [facility] Last Admin: 05/23/25 08:39 Dose: 100 mls/hr Documented By: ESVIN Magnesium Hydroxide (Milk Of Magnesia 30 Ml Oral.Susp) 30 ml PO DAILY PRN PRN Reason: Constipation Melatonin (Melatonin 3 Mg Tablet) 6 mg PO BEDTIME PRN PRN Reason: Insomnia Last Admin: 05/21/25 20:28 Dose: 6 mg Documented By: DARELL Metoclopramide HCl (Metoclopramide Hcl 10 Mg/2 Ml Vial) 5 mg IVPUSH Q6H PRN PRN Reason: Nausea and Vomiting Last Admin: 05/22/25 19:55 Dose: 5 mg Documented By: DARELL Omeprazole (Omeprazole 40 Mg Capsule.Dr) 40 mg PO DAILY@0630 [facility] Last Admin: 05/23/25 05:38 Dose: 40 mg Documented By: DARELL Ondansetron HCl (Ondansetron Hcl 4 Mg/2 Ml Vial) 4 mg IVPUSH Q8H PRN PRN Reason: Nausea and Vomiting Last Admin: 05/22/25 17:58 Dose: 4 mg Documented By: BEE Polyethylene Glycol (Polyethylene Glycol 3350 17 Gm Powd.Pack) 17 gm PO DAILY [facility] Last Admin: 05/23/25 08:40 Dose: 17 gm Documented By: ESVIN Sodium Chloride (0.9 % Sodium Chloride Flush 3 Ml Syringe) 3 ml IVFLUSH QSHIFT [facility] Last Admin: 05/23/25 08:40 Dose: Not Given Documented By: ESVIN Non-Admin Reason: IV Running Labs 05/22/25 05:22 05/23/25 06:03 Labs: Laboratory Results - last 24 hr 05/23/25 05/23/25 05/23/25 06:02 06:03 07:34 Hold Purple Top SEE NOTE Anion Gap 13 Estim Creat Clear Calc 118.1 Estimated GFR > 60 POC Glucose 42 L* Random Glucose 50 L* Calcium 8.0 L 05/23/25 05/23/25 08:00 11:14 Hold Purple Top Anion Gap Estim Creat Clear Calc Estimated GFR POC Glucose 78 74 Random Glucose Calcium Assessment and Plan (1) Sepsis: Status: Acute Assessment and Plan: Improving. was placed on Zosyn for management. CT-AP reveals no abscess, but does reveal presence of diverticulitis, uncomplicated. transitioned to PO augmentin with progressive improvement clinically. PLAN - Continue PO Augmentin - Monitor pain - Monitor bowel movements - Monitor I/O (2) Diverticulitis of sigmoid colon: Status: Acute Assessment and Plan: Improving. Currently on Augmentin for management. CT-AP reveals no abscess, but does reveal presence of diverticulitis, uncomplicated. transitioned to PO augmentin with progressive improvement clinically. PLAN - Continue PO Augmentin - Monitor pain - Monitor bowel movements - Monitor I/O (3) Chronic constipation: Status: Acute Assessment and Plan: Chronic medical complaint, but likely contributory to precipitance of current medical presentation. PLAN - Encourage PO hydration - Miralax post resolution of diverticulitis (4) Mild anemia: Status: Acute Assessment and Plan: Chronic medical issue likely secondary to menstrual bleeding. Stable and Hgb/ RBCs being monitored. FU in outatient setting Total time managing care of this patient today: 35 minutes. Quality Stroke Does the patient have a stroke diagnosis?: No VTE Prior VTE?: No VTE Risk Level:: Medical - moderate - high VTE Device Contraindication: Treatment Not Indicated VTE Drug Contraindication: N/A - Med Ordered
[2025-05-23 15:23] VITALS: BP 110/74; PULSE 68; RESP 18; TEMP 36.6; O2SAT 98
[2025-05-23 16:19] LABS: Glucose, Whole Blood 93 mg/dL (60-115)
[2025-05-23 19:08] VITALS: BP 110/74; PULSE 86; RESP 18; TEMP 36.9; O2SAT 99
[2025-05-23 20:05] LABS: Glucose, Whole Blood 113 mg/dL (60-115)
[2025-05-24] MEDS: Lactated Ringers 1,000 ML 100 ML IVCONT (02:45)
[2025-05-24 03:02] VITALS: BP 102/59; PULSE 74; RESP 16; TEMP 36.2; O2SAT 97
[2025-05-24 07:12] VITALS: BP 94/57; PULSE 65; RESP 16; TEMP 37.1; O2SAT 98
[2025-05-24 07:30] VITALS: BP 114/76
--- NOTE | 2025-05-24 13:19 | P.DS_ITS ---
DS: Providers Provider Date of Service: 05/20/25 Date of admission: 05/20/25 02:10 Date of discharge: 05/24/25 Primary care physician: KEMAR Jiang Attending physician on discharge: Titus Holm DS: Diagnosis Discharge Diagnosis (1) Sepsis: Status: Acute (2) Diverticulitis of sigmoid colon: Status: Acute (3) Chronic constipation: Status: Acute (4) Mild anemia: Status: Acute DS: Summary Hospital Course Hospital Course: 40-year-old female with no pertinent past medical history and not on prescription medications who presents to the emergency department for evaluation of abdominal pain. Patient states she woke up with left lower quadrant pain that was constant, nonradiating and without any relieving factors. Also had associated chills and nausea. No history of similar pain in the past. Does occasionally have constipation. Patient tried Tylenol for pain but it was without any relief. No chest pain, palpitations, shortness of breath, changes in urinary habits. In the emergency department, patient was found to be septic and imaging concerning for sigmoid diverticulitis. Admitted with sepsis due to acute sigmoid diverticulitis. CT scan revealed diverticulitis without perforation, abscess. Received IV Zosyn during admission with progressive improvement clinically She received IV LR infusion and was made NPO with progressive and gradual advancement of diet to full regular diet. She has been able to keep food and liquids down, stooling and urinating well. Transitioned to PO augmentin with progressive improvement clinically. Status at Discharge Functional status at discharge: independent ambulation Overall status at discharge: patient is back to baseline Time Attestation Total time managing care of this patient today: 35 mintues. Discharge Coordination Time (in mins): 15 Quality: Safe Use of Opioids Does Pt have an Active Cancer Diagnosis on the Problem List?: No Quality: Stroke Does the patient have a stroke diagnosis?: No Physical Exam Exam: Exam: Middle-aged female lying in bed in no distress Neck supple, no JVD Regular rate and rhythm, S1-S2 heard Regular breath sounds bilaterally, no wheezing or crackles appreciated Abdomen soft, mild tenderness to palpation of the LLQ, no rigidity or rebound tenderness Patient is awake, alert and oriented to self, place, time and person ; no focal motor deficit Psych: Normal mood No pedal edema Vital Signs: Vital Signs: Last Vital Signs Temp 98.8 F 05/24/25 07:12 Pulse 65 05/24/25 07:12 Resp 16 05/24/25 07:12 BP 114/76 05/24/25 07:30 Pulse Ox 98 05/24/25 07:12 O2 Del Method Room Air 05/24/25 07:12 BMI result Body Mass Index 31.4 DS: Data Data Completed and Pending Labs on day of discharge: Laboratory Results - last 24 hr 05/23/25 05/23/25 16:12 19:56 POC Glucose 93 113 Preliminary micro results at discharge 05/19/25 22:19 Blood Culture - Preliminary Blood - Venous No growth after 48 hours. 05/19/25 22:19 Blood Culture - Preliminary Blood - Venous No growth after 48 hours. Discharge Plan Discharge Anticipated Discharge Date/Time: 05/24/25 13:32 Patient Disposition: Home, Self-Care Discharge Diagnosis: uncomplicated acute diverticulitis with sepsis Referrals: Sarah Rocha, [employer] [Primary Care Provider, Internal Medicine] - 1 Week Discharge Medications: New omeprazole 40 mg Capsule,Delayed Release(Dr/Ec) 40 mg PO DAILY@0630 10 Days Qty: 10 0RF amoxicillin-pot clavulanate 500-125 mg Tablet 1 tab PO Q12H 10 Days Qty: 20 0RF No Action No Known Home Meds Discharge Orders: Discharge Order (Routine); Ordered 05/24/25 Ordered By: Titus Holm Diet: Advance to usual diet Activity on Discharge: As tolerated Stand Alone Forms: Patient Portal Discharge page Print Language: Kosovan Care Plan Goals: - Follow with PCP outpatient - Hydrate appropriately to avoid constipation - Consider outpatient high fiber diet - Consider use of miralax outpatient for constipation - complete antibiotic regimen Health Concerns: as above Plan of Treatment: - Follow with PCP outpatient - Hydrate appropriately to avoid constipation - Consider outpatient high fiber diet - Consider use of miralax outpatient for constipation - complete antibiotic regimen Assessment: Stable and close to baseline. Can eat and drink on her own. Stooling and urinating well. Pain well controlled Patient Instructions: Diverticulitis (GEN)
--- NOTE | 2025-05-24 13:44 | MHC.CM.PN ---
pt dcd home self care
[2025-05-24 13:47] VITALS: BP 127/83; PULSE 91; RESP 16; TEMP 36.3; O2SAT 97
== END 2025-05-24 13:50 | disposition home or self-care (01) | DRG 720 ==
LOC: HO.ED 05-20 02:20 → HO.EDOVER 05-20 02:25 → HO.S3 05-20 09:04
PROVIDERS: Internal Medicine; Physician Assistant Medical; Admitting Provider Student in an Organized Health Care Education/Training Program; Emergency Provider Emergency Medicine; PCP Nurse Practitioner Family; Visit Provider Hospitalist
DX: A41.9 Sepsis, unspecified organism (principal); D50.0 Iron deficiency anemia secondary to blood loss (chronic); K57.32 Diverticulitis of large intestine without perforation or abscess without bleeding; K59.09 Other constipation
CPT/HCPCS: 36415; 74177; 80048; 80053; 81001; 82947; 83605; 83735; 84702; 85025; 85027; 87040; 99285; J1171; J1650; J1885; J2405; J2543; J2765; J7120; Q9967

== ENCOUNTER → 2025-05-19 22:05 | Outpatient (BNV) | payer BC, SELFPAY | PROVIDERS: Emergency Provider Emergency Medicine; PCP Nurse Practitioner Family; Visit Provider General Practice | DX: K57.32 Diverticulitis of large intestine without perforation or abscess without bleeding (principal) | CPT/HCPCS: 74177 ==

== ENCOUNTER → 2025-05-20 02:10 | Outpatient (BNV) | payer BC, SELFPAY | PROVIDERS: Admitting Provider Student in an Organized Health Care Education/Training Program; Emergency Provider Emergency Medicine; PCP Nurse Practitioner Family; Visit Provider Student in an Organized Health Care Education/Training Program | DX: K57.32 Diverticulitis of large intestine without perforation or abscess without bleeding (principal) | CPT/HCPCS: 99222; 99499 ==

== ENCOUNTER 2025-05-27 11:27 | Outpatient (AMB) | payer BC, SELFPAY ==
--- NOTE | 2025-05-27 11:28 | MHC.PC.OV ---
Vital Signs 05/27/25 11:32 Height 5 ft 1 in Weight 159 lb 8 oz BMI 30.1 BP 118/70 Blood Pressure Location Lt brachial Position Sitting Respiration 12 Pulse 72 Pulse Source Pulse Oximeter Temp 96.9 F Temp Source Oral Pulse Oximetry (%) 98 Oxygen Delivery Method Room Air Intake Visit Reasons: [place] [facility] [place] Note: [place] [facility] Spindle Sander Required: No Allergies No Known Allergies Allergy (Verified 05/27/25 11:39) Medication List - Last Reconciled 05/27/25 by Sarah Rocha, DATA ENTRY REPRESENTATIVE- amoxicillin-pot clavulanate 500-125 mg 1 tab PO Q12H 10 days omeprazole 40 mg PO DAILY@0630 10 days Tobacco use date assessed: 05/27/25 Dental Screening Dental Screen Date: 05/27/25 Did you have a dental visit in the last 12 months?: Yes Did you have a dental problem in the last 6 months where you did not have access to dental care?: No Was dental information given to patient?: Patient has dentist HPI HPI Comments History of Present Illness Details 40 y/o F with obesity, chronic constipation, anemia, palpitations, diverticulitis Surgical hx: c section x 2, tubal ligation 2021 Family hx: no changes 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 Has 3 children, 2 dtrs and 1 son . 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 Presented to the emergency department for evaluation of abdominal pain. Patient states she woke up with left lower quadrant pain that was constant, nonradiating and without any relieving factors. Also had associated chills and nausea. No history of similar pain in the past. Does occasionally have constipation. Patient tried Tylenol for pain but it was without any relief. No chest pain, palpitations, shortness of breath, changes in urinary habits. In the emergency department, patient was found to be septic and imaging concerning for sigmoid diverticulitis. Admitted with sepsis due to acute sigmoid diverticulitis. CT scan revealed diverticulitis without perforation, abscess. Received IV Zosyn during admission with progressive improvement clinically She received IV LR infusion and was made NPO with progressive and gradual advancement of diet to full regular diet. She has been able to keep food and liquids down, stooling and urinating well. Transitioned to PO augmentin with progressive improvement clinically. Care Plan Goals: - Follow with PCP outpatient - Hydrate appropriately to avoid constipation - Consider outpatient high fiber diet - Consider use of miralax outpatient for constipation - complete antibiotic regimen Admission Date: 05/20/25 Discharge Date: 05/24/25 [place] [facility] Date of interactive contact with Nurse Navigator: as documented in chart Pending diagnostic tests/treatments: no Pending consults: no DME: none PT/OT/RAZOR SHARPENER: no Referrals: none Medications reconciled & updated. Discharge Medications: New omeprazole 40 mg Capsule,Delayed Release(Dr/Ec) 40 mg PO DAILY@0630 10 Days Qty: 10 0RF amoxicillin-pot clavulanate 500-125 mg Tablet 1 tab PO Q12H 10 Days Qty: 20 0RF During todays TCM visit, the d/c summary was reviewed, along with the need for or follow-up on pending diagnostic tests and treatments, as necessary interaction with other health respiratory care instructor who will assume or reassume care of the beneficiary?s system-specific problems was done or is being worked on, education was provided to the beneficiary, family, guardian, and/or caregiver, referrals to establish or re-establish and arrange needed community resources we completed, assistance in scheduling required follow-up with community providers and services & finally updated medication list given to patient/caregiver History of Present Illness - The patient is a 40-year-old female presenting with transitional care management following hospitalization for acute diverticulitis. - Hospitalized with acute diverticulitis and sepsis; treated with IV antibiotics and discharged with PO Augmentin, 875 mg BID for 10 days. - Post-discharge symptoms include LLQ stomach discomfort, liquid stools, and improved tolerance to dietary intake. - Chronic anemia addressed; advised against iron supplements presently; was on in the past. - Notable lab results 05/23/25: hypokalemia at 3.2 mEq/L, episodes of fasting hypoglycemia with a recorded drop to 42 mg/dL, low protein storage, and low calcium. Review of Systems - Gastrointestinal: Reports tolerating Augmentin without stomach pain or vomiting. Reports stomach discomfort, describes stool as liquid due to daily MiraLax use. - Hematologic: Chronic anemia acknowledged, withholding current iron supplement use. - Endocrine: Episode of low blood glucose recorded at 42 mg/dL, no diabetic status. - Musculoskeletal: Denies persistent leg pain post infection resolution. - Nutritional: Concerns regarding low protein and calcium intake. - Neurologic: Denies palpitations. - Other Systems: No additional symptoms reported. Physical Exam General: Well developed, well nourished, in no acute distress. Appears stated age. Head: Normocephalic, atraumatic. Eyes: Pupils are equal, round and reactive to light and accommodation. Conjunctivae are clear. Vision grossly normal. Lungs: Clear to auscultation bilaterally. No rales, rhonchi or wheeze noted. Good air flow in all ortiz. Heart: Regular rate and rhythm. No murmurs, click, rubs or gallops are noted. Abdomen: Bowel sounds present in all quadrants. The abdomen is soft, nontender, with no masses or organomegaly noted. No hernias are noted. Musculoskeletal: Joints are nontender, without swelling, redness, or effusions. Pulses: Peripheral pulses are equal and palpable bilaterally. Extremities: No clubbing, cyanosis nor edema is noted. Psych: Mood and affect appropriate. Results 05/23/25 - Labs: - Anemia and low potassium level: 3.2 mEq/L - Low blood glucose episode: 42 mg/dL - Low protein and calcium levels noted in labs - Imaging: - Abdominal and pelvic CT on 05/20: No abnormalities in the gallbladder, kidneys; normal appendix - Labs: - Anemia, hypokalemia (3.2 mEq/L), hypoglycemia episode (42 mg/dL), low protein stores, and low calcium levels - Imaging: - Recent abdominal CT showed normal gallbladder, kidneys, and appendix Discussion Notes In our discussion, we addressed the patient's recent hospitalization for acute diverticulitis and sepsis. I reviewed the patient's current medication regimen post-hospitalization, confirming that she is on Augmentin orally for 10 days, which she tolerates well. We talked about holding off on iron supplements due to the risk of constipation and an upset stomach. We addressed bloodwork done during hospitalization, highlighting low potassium and anemia. We also discussed the episode of low blood glucose and determined it as atypical. I advised monitoring blood sugar levels, particularly given the history of hypoglycemia. We reviewed dietary modifications, favoring high-fiber intake post-recovery to prevent future diverticulitis flare-ups. Patient education included listening to her body's responses to dietary changes. We planned a follow-up set of labs to monitor her anemia, electrolyte balance, and overall recovery from the hospitalization period. Patient was given time to ask questions. All questions were answered to their satisfaction. Assessment and Plan 1. Acute Diverticulitis - Continue Augmentin 875 mg BID. - Low-fiber diet during antibiotics, high-fiber post-recovery. - Monitor with follow-up labs. 2. Anemia - Hold iron, monitor condition with further labs. 3. Hypokalemia - Increase dietary potassium, recheck labs. 4. Abnormal Blood Glucose - Monitor glucose levels, evaluate further if needed. Labs are improved. Your liver enzymes are a little higher than they were while you were hospitalized. This is normal. I recommend once you are feeling back to her baseline to restart on your iron tablet daily. Be sure to avoid constipation. If you develop any recurrent abdominal pain please let me know immediately so we can follow up sooner rather than later. Patient Instructions - Continue taking prescribed Augmentin twice daily until completed. - Follow a low-fiber diet until you finish the antibiotics, then increase fiber intake afterward. - Drink plenty of fluids and continue using MiraLax as discussed. - Monitor how your body feels with different foods and note any discomfort. - Avoid iron supplements for now, eat foods rich in potassium like bananas and oranges. - Keep track of blood sugar levels and report any unusual lows or symptoms. - RTO December for CPE, labs 1 week before, sooner PRN Consent Patient was informed and verbally consented to the use of an ambient scribe for clinic note documentation during this visit. Total time spent caring for the patient today was 45 minutes. This includes time spent before the visit reviewing the chart, time spent during the visit, and time spent after the visit on documentation, reviewing laboratory results, diagnostic imaging, medications, performing a medically necessary evaluation, counseling on diagnoses, care coordination, ordering appropriate tests, ordering appropriate medications, review of tests performed by other providers, reporting test results with the patient, communication with other healthcare providers. [facility] Medical History No pertinent past medical history COVID-19 Surgical History History of Papanicolaou smear of cervix (~2022) H/O section Family History Mother High cholesterol Diabetes Social History Household Members: Family Both parents involved: No Caregiver staying overnight: No Housing: Apartment Are you a primary certified caregiver to a significant other at home: Yes Do you presently have visiting nurse or other home services: No 75 years or older and lives alone: No Alcohol intake: current Alcohol intake frequency: holidays/special occasions only Patient Tobacco Use Status: Never used Tobacco e-Cigarette/Vaping Use: Never Used Second Hand Smoke Exposure: No service: No Current occupational status: employed 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 1. Little interest or pleasure in doing things: not at all 2. Feeling down, depressed, or hopeless: not at all 3. Trouble falling or staying asleep, or sleeping too much: not at all 4. Feeling tired or having little energy: not at all 5. Poor appetite or overeating: not at all 6. Feeling bad about yourself - or that you are a failure or have let yourself or your family down: not at all 7. Trouble concentrating on things, such as reading the newspaper or watching television: not at all 8. Moving or speaking so slowly that other people could have noticed. Or the opposite - being so fidgety or restless that you have been moving around a lot more than usual: not at all 9. Thoughts that you would be better off or of hurting yourself in some way: not at all Total score: 0 Depression Screening Interpretation: Negative Depression Screening Done: Yes 01164 - PHQ-9 Billing: Yes Source: Developed by Drs. Colin Perera, Peace Oleary, Major Farnsworth and colleagues, with an educational jean from [employer]. Thrive Questionnaire Date Thrive assessed: 05/27/25 I am a: Patient What is your living situation today?: I have a steady place to live Within the past 12 months, did the food you bought not last and you didn't have the money to get more?: Never true Within the past 12 months, did you worry whether your food would run out before you got money to buy more?: Never true Do you have trouble paying for medicines?: Yes Do you have trouble getting transportation to medical appointments?: No Do you have trouble paying your heating and electricity bill?: No Do you have trouble taking care of your child, family member or friend?: No Do you have trouble with day-to-day activities such as bathing, preparing meals, shopping, managing finances, etc.?: No Are you currently unemployed and looking for a job?: No Are you interested in more education?: No Please select the resources that you would like help with: None Currently or been in a relationship where the following occur: No concerns reported THRIVE Score: 0 AUDIT C Alcohol Use Questionnaire (AUDIT-C) 1. How often do you have a drink containing alcohol?: Never Total Score: 0 Score Reviewed/Action Taken: Yes SWETA-7 AMB Questionnaire SWETA-7 Date SWETA - 7 assessed: 05/27/25 Feeling nervous, anxious, or on edge: 0 = Not at all Not being able to stop or control worryin = Not at all Worrying too much about different things: 0 = Not at all Trouble relaxin = Not at all Being so restless that it is hard to sit still: 0 = Not at all Becoming easily annoyed or irritable: 0 = Not at all Feeling afraid as if something awful might happen: 0 = Not at all Total SWETA-7 score (0-4 normal; 5-9 mild; 10-14 moderate; 15-21 severe): 0 Source: Developed by Drs. Colin Perera, Peace Oleary, Major Farnsworth and colleagues, with an educational jean from [employer]. SWETA-7 Assessment Billing SWETA-7 Assessment Tool: SWETA-7 Assessment 70440 Physical exam (Primary Care) Vital Signs: Last Vital Signs Temp 96.9 F 05/27/25 11:32 Pulse 72 05/27/25 11:32 Resp 12 05/27/25 11:32 BP 118/70 05/27/25 11:32 Pulse Ox 98 08/12/25 11:32 Oxygen Delivery Method Room Air 05/27/25 11:32 BMI result Body Mass Index 30.1 Tobacco/Smoking Status: Tobacco use Status Tobacco use date assessed 05/27/25 05/27/25 11:33 Patient Tobacco Use Status Never used Tobacco 05/27/25 11:33 e-Cigarette/Vaping Use Never Used 05/27/25 11:33 PHQ-9: PHQ-9 Score PHQ-9: Total score 0 05/27/25 11:58 Depression Screening Interpretation: Negative Thrive Assessment: Date of Thrive Assessment Date Thrive assessed 05/27/25 05/27/25 11:33 Currently or been in a relationship where the following occur: No concerns reported Results Reviewed Results Reviewed: 05/27/2025 Labs are improved. Your liver enzymes are a little higher than they were while you were hospitalized. This is normal. I recommend once you are feeling back to her baseline to restart on your iron tablet daily. Be sure to avoid constipation. If you develop any recurrent abdominal pain please let me know immediately so we can follow up sooner rather than later. Laboratory Result Units Range Interpretation Provider Comments White Blood Count 6.2 X10*3/uL (4.8-10.8) Red Blood Count 4.57 X10*6/uL (4.20-5.50) Delta Hemoglobin 11.2 g/dl (12.0-16.0) Delta Low Hematocrit 35.8 % (37.0-47.0) Delta Low Mean Corpuscular Volume 78.3 fL (80.0-98.0) Low Mean Corpuscular Hemoglobin 24.5 pg (27.0-33.0) Low Mean Corpuscular Hemoglobin Concent 31.3 g/dl (31.0-35.0) Red Cell Distribution Width 17.9 % (11.0-16.0) High Platelet Count 325 X10*3/uL (160-400) Delta Mean Platelet Volume 10.3 fL (9.4-12.3) Nucleated RBC Absolute Count (auto) 0.000 X10*3/uL (0.0-0.012) Nucleated Red Blood Cells % (auto) 0.0 /100WBC (0.0-0.2) Sodium Level 140 mmol/L (135-145) Potassium Level 4.1 mmol/L (3.3-5.1) Delta Chloride Level 104 mmol/L (96-108) Carbon Dioxide Level 27 mmol/L (22-29) Anion Gap 13 (12-20) Blood Urea Nitrogen 10 mg/dL (9-16) Creatinine 0.61 mg/dL (0.5-1.4) Estimated Creatinine Clearance Calc Not Reportable Estimat Glomerular Filtration Rate > 60 Random Glucose 83 mg/dL (60-115) Estimated Average Glucose 100 mg/dL Hemoglobin A1c Percent 5.1 % (<6.0) Calcium Level 9.3 mg/dL (8.4-10.2) Delta Iron Level 20 mcg/dL (30-160) Low Total Iron Binding Capacity 282 mcg/dL (228-428) Percent Iron Saturation 7 % (15-50) Low Unsaturated Iron Binding 262 ug/dL Total Bilirubin 0.3 mg/dL (0.0-1.0) Aspartate Amino Transf (AST/SGOT) 41 U/L (5-31) High Alanine Aminotransferase (ALT/SGPT) 63 U/L (0-31) High Alkaline Phosphatase 47 U/L (39-117) Total Protein 7.5 g/dL (6.5-8.0) Albumin 4.2 g/dL (3.5-5.0) Coding Level of Care Code TCM High MDM <= 7 Days Complex EM visit Add On G2211 Diagnoses Hospital discharge follow-up Z09 Diverticulitis of sigmoid colon K57.32 Acute diverticulitis K57.92 Sepsis, due to unspecified organism, unspecified whether acute organ dysfunction present A41.9 Sepsis type: sepsis due to unspecified organism Sepsis acute organ dysfunction status: unspecified Mild anemia D64.9 Elevated LFTs R79.89 Additional Codes SWETA-7 Assessment Billing - SWETA-7 Assessment Tool: SWETA-7 Assessment 94929 ([id number]) PHQ-9 - 54669 - PHQ-9 Billing: Yes ([id number]) Assessment & Plan Assessment & Plan (1) Hospital discharge follow-up: Code(s): Z09 - Encounter for follow-up examination after completed treatment for conditions other than malignant neoplasm (2) Diverticulitis of sigmoid colon: Code(s): K57.32 - Diverticulitis of large intestine without perforation or abscess without bleeding Category: Medical (3) Acute diverticulitis: Code(s): K57.92 - Diverticulitis of intestine, part unspecified, without perforation or abscess without bleeding Category: Medical (4) Sepsis: Onset Date: 05/2025 Code(s): A41.9 - Sepsis, unspecified organism Category: Medical Qualifiers: Sepsis type: sepsis due to unspecified organism Sepsis acute organ dysfunction status: unspecified Qualified Code(s): A41.9 - Sepsis, unspecified organism (5) Mild anemia: Code(s): D64.9 - Anemia, unspecified Category: Medical (6) Elevated LFTs: Code(s): R79.89 - Other specified abnormal findings of blood chemistry Category: Medical Plan , Orders: Orders Comprehensive Met. Panel 11/16/25 D64.9 - Anemia, unspecified, R79.89 - Other specified abnormal findings of blood chemistry, Z00.00 - Encounter for general adult medical examination without abnormal findings Hemoglobin A1c 11/16/25 D64.9 - Anemia, unspecified, R79.89 - Other specified abnormal findings of blood chemistry, Z00.00 - Encounter for general adult medical examination without abnormal findings Lipid Panel 11/16/25 D64.9 - Anemia, unspecified, R79.89 - Other specified abnormal findings of blood chemistry, Z00.00 - Encounter for general adult medical examination without abnormal findings Comprehensive Met. Panel Today Z09 - Encounter for follow-up examination after completed treatment for conditions other than malignant neoplasm Hemoglobin A1c Today Z09 - Encounter for follow-up examination after completed treatment for conditions other than malignant neoplasm Complete Blood Count no Diff 11/16/25 D64.9 - Anemia, unspecified, R79.89 - Other specified abnormal findings of blood chemistry, Z00.00 - Encounter for general adult medical examination without abnormal findings Ferritin 11/16/25 D64.9 - Anemia, unspecified, R79.89 - Other specified abnormal findings of blood chemistry, Z00.00 - Encounter for general adult medical examination without abnormal findings IRON PROFILE 11/16/25 D64.9 - Anemia, unspecified, R79.89 - Other specified abnormal findings of blood chemistry, Z00.00 - Encounter for general adult medical examination without abnormal findings Microalbumin, Random (w Creat) 11/16/25 D64.9 - Anemia, unspecified, R79.89 - Other specified abnormal findings of blood chemistry, Z00.00 - Encounter for general adult medical examination without abnormal findings TSH reflex Free T4 11/16/25 D64.9 - Anemia, unspecified, R79.89 - Other specified abnormal findings of blood chemistry, Z00.00 - Encounter for general adult medical examination without abnormal findings Vitamin B12 and Folate 11/16/25 D64.9 - Anemia, unspecified, R79.89 - Other specified abnormal findings of blood chemistry, Z00.00 - Encounter for general adult medical examination without abnormal findings Vitamin D 25-OH Total 11/16/25 D64.9 - Anemia, unspecified, R79.89 - Other specified abnormal findings of blood chemistry, Z00.00 - Encounter for general adult medical examination without abnormal findings
[2025-05-27 11:32] VITALS: BP 118/70; PULSE 72; RESP 12; TEMP 36.1; O2SAT 98; BMI 30.1
== END 2025-05-27 11:51 | disposition home or self-care (01) ==
LOC: HO.HMCFM 11:27
PROVIDERS: PCP Nurse Practitioner Family; Visit Provider Nurse Practitioner Family
DX: K57.32 Diverticulitis of large intestine without perforation or abscess without bleeding (principal); A41.9 Sepsis, unspecified organism; D64.9 Anemia, unspecified; R79.89 Other specified abnormal findings of blood chemistry; Z09 Encounter for follow-up examination after completed treatment for conditions other than malignant neoplasm

== ENCOUNTER 2025-05-27 11:27 | Outpatient (REF) | payer BC, SELFPAY ==
[2025-05-27 13:29] LABS: Hematocrit 35.8 % (37.0-47.0); Hemoglobin 11.2 g/dl (12.0-16.0); Mean Corpuscular HGB Conc 31.3 g/dl (31.0-35.0); Mean Corpuscular Hemoglobin 24.5 pg (27.0-33.0); Mean Corpuscular Volume 78.3 fL (80.0-98.0); NRBC Abs Auto 0.000 X10*3/uL (0.0-0.012); NRBC Pct Auto 0.0 /100WBC (0.0-0.2); Platelet Count 325 X10*3/uL (160-400); Red Blood Count 4.57 X10*6/uL (4.20-5.50); White Blood Count 6.2 X10*3/uL (4.8-10.8)
[2025-05-27 13:56] LABS: Hemoglobin A1C 115.6919 umol/L; Total Hemoglobin (HGBA1C) 3569.8503 umol/L
[2025-05-27 14:08] LABS: Alanine Aminotransferase 63 U/L (0-31); Albumin Level 4.2 g/dL (3.5-5.0); Alkaline Phosphatase 47 U/L (39-117); Anion Gap 13 (12-20); Aspartate Amino Transferase 41 U/L (5-31); Blood Urea Nitrogen 10 mg/dL (9-16); Calcium 9.3 mg/dL (8.4-10.2); Carbon Dioxide 27 mmol/L (22-29); Chloride 104 mmol/L (96-108); Estimated Glomerular Filt Rate > 60; Iron 20 mcg/dL (30-160); Percent Iron Saturation 7 % (15-50); Potassium 4.1 mmol/L (3.3-5.1); Sodium 140 mmol/L (135-145); Total Iron Binding Capacity 282 mcg/dL (228-428); Total Protein 7.5 g/dL (6.5-8.0); Unsaturated Iron Binding 262 ug/dL
== END 2025-05-27 11:28 | disposition home or self-care (01) ==
LOC: HO.LAB 11:27
PROVIDERS: PCP Nurse Practitioner Family; Visit Provider Nurse Practitioner Family
DX: Z09 Encounter for follow-up examination after completed treatment for conditions other than malignant neoplasm (principal); D64.9 Anemia, unspecified; K57.32 Diverticulitis of large intestine without perforation or abscess without bleeding; K57.92 Diverticulitis of intestine, part unspecified, without perforation or abscess without bleeding; A41.9 Sepsis, unspecified organism; R79.89 Other specified abnormal findings of blood chemistry
CPT/HCPCS: 36415; 80053; 83036; 83540; 85027; 96127